=== PATIENT | male | born 1965 | race Caucasian/White ===

== ENCOUNTER 2020-06-19 07:15 | Emergency (ER) | payer OTHER ==
[2020-06-19 07:32] VITALS: BP 141/91; PULSE 74; TEMP 98.6; BMI 27.1
--- OUTSIDE RECORDS SUMMARY | 2020-06-19 07:37 | XMS ---
:1965 Author Organization [facility] Care Team Providers Name Role Phone Rosendo Deng Unavailable Unavailable Marko Bryan MD Unavailable Unavailable Noyer, Edson Unavailable Unavailable Noyer, Edson Unavailable Unavailable Noyer, Edson Unavailable Unavailable Noyer, Edson Unavailable Unavailable Noyer, Edson Unavailable Unavailable Noyer, Edson Unavailable Unavailable Noyer, Edson Unavailable Unavailable Noyer, Edson Unavailable Unavailable Noyer, Edson Unavailable Unavailable Noyer, Edson Unavailable Unavailable Marco Graves MD Unavailable Unavailable Lucian Scanlon MD Unavailable Unavailable Yelitza Bolton MD Unavailable Unavailable Rosy Santoyo MD Unavailable Unavailable Rosy Santoyo MD Unavailable Unavailable Rosy Santoyo MD Unavailable Unavailable Rosy Santoyo MD Unavailable Unavailable Rosy Santoyo MD Unavailable Unavailable Rosy Santoyo MD Unavailable Unavailable Rosy Santoyo MD Unavailable Unavailable Rosy Santoyo MD Unavailable Unavailable Rosy Santoyo MD Unavailable Unavailable Rosy Santoyo MD Unavailable Unavailable Rosy Santoyo MD Unavailable Unavailable Rosy Santoyo MD Unavailable Unavailable Tara Dorado NP Unavailable Unavailable Marco Hardin MD Unavailable Unavailable Jean Claude Michael MD Unavailable Unavailable Foristell, Rosy MD Unavailable Unavailable Foristell, Rosy MD Unavailable Unavailable Foristell, Rosy MD Unavailable Unavailable Foristell, Rosy MD Unavailable Unavailable Foristell, Rosy MD Unavailable Unavailable Foristell, Rosy MD Unavailable Unavailable Foristell, Rosy MD Unavailable Unavailable Foristell, Rosy MD Unavailable Unavailable Foristell, Rosy MD Unavailable Unavailable Foristell, Rosy MD Unavailable Unavailable Foristell, Rosy MD Unavailable Unavailable Foristell, Rosy MD Unavailable Unavailable Nabil Rivera MD Unavailable Unavailable Re-disclosure Warning The records that you are about to access may contain information from federally- assisted alcohol or drug abuse programs. If such information is present, then the following federally mandated warning applies: This information has been disclosed to you from records protected by federal confidentiality rules (42 CFR part 2). The federal rules prohibit you from making any further disclosure of this information unless further disclosure is expressly permitted by the written consent of the person to whom it pertains or as otherwise permitted by 42 CFR part 2. A general authorization for the release of medical or other information is NOT sufficient for this purpose. The Federal rules restrict any use of the information to criminally investigate or prosecute any alcohol or drug abuse patient.The records that you are about to access may contain highly sensitive health information, the redisclosure of which is protected by Article 27-F of the [facility] Public Health law. If you continue you may haveaccess to information: Regarding HIV / AIDS; Provided by facilities licensed or operated by the [facility] Office of Mental Health; or Provided by the [facility] Office for People With Developmental Disabilities. If such information is present, then the following [facility] mandated warning applies: This information has been disclosed to you from confidential records which are protected by state law. State law prohibits you from making any further disclosure of this information without the specific written consent of the person to whom it pertains, or as otherwise permitted by law. Any unauthorized further disclosure in violation of state law may result in a fine or senior care sentence or both. A general authorization for the release of medical or other information is NOT sufficient authorization for further disclosure. Advance Directives Directive Description Manager Speech Director Digital Marketing Status Observation Data S ource(s) Description Advance No completed [facility] Advance No [facility] Allergies and Adverse Reactions Type Description Substance Reaction Status Data Source(s ) Drug allergy No Known Allergies No Known Allergies UNKNOWN [facility] Drug allergy Drug allergy Drug allergy [facility] ( Digestive Disease & Nutrition [facility] ) Encounters Encounter Providers Location Date Indications Data Source(s ) Outpatient Attender: Digestive 05/30/2020 MEDALINA Bui Disease & 04:30:00 (Digestive Nutrition Center PM EDT Disease & Nutrition [facility]) P Attender: 05/08/2020 DIARRHEA,UNSPECIF Anup Bui 05:00:00 [facility] EDT DIARRHEA,UNSPECIFIED Outpatient Attender: Edson 04/30/2020 01:52:00 [facility] Outpatient Attender: Digestive 04/22/2020 MEDALINA (Digest jose Edson Bui Disease & 02:00:00 PM EDT Diseas e & Nutrition Center [facility] ) Outpatient Attender: 03/19/2020 W/ MRCP [facility] Edson Bui 01:57:00 PM EDT Hospit al W/ [facility] Outpatient Attender: Digestive 03/06/2020 MEDENT Edson Bui Disease & 01:50:00 PM (Digestive Nutrition EDT Disease & Center Nutrition [facility] ) Outpatient Attender: Digestive 11/02/2019 MEDALINA Bui Disease & 01:30:00 PM (Digestive Nutrition EST Disease & Center Nutrition [facility] ) Outpatient Attender: Digestive 10/16/2019 MEDALINA Bui Disease & 12:00:00 PM (Digestive Nutrition EST Disease & Center Nutrition [facility] ) Outpatient Attender: 10/13/2019 CHRONIC BILIARY [place] [facility] Marco Hardin 05:35:00 PM PANCREATITIS Hospital EST CHRONIC BILIARY PANCREATITIS P Attender: Marco 10/13/2019 01:30:00 CT PERIPAN CREATIC FLUID Anup Hardin MD PM EST ASPIRATION Hospital CT PERIPANCREATIC FLUID ASPIRATION Outpatient Attender: Tara 10/03/2019 CHRONIC PANCREATIT IS Anup Dorado NP 01:39:00 PM EST UNSPEC PANCREATIT IS Hospital TYPE CHRONIC PANCREATITIS UNSPEC PANCREATITIS TYPE Outpatient Attender: Tara 07/31/2019 GALLSTONES White Rachael Dorado NP 08:58:00 AM EST PANCREATITIS K85. 10 Hospital GALLSTONES PANCREATITIS K85.10 Outpatient Attender: Digestive 07/20/2019 KATHLEEN Bui Disease & 09:00:00 AM (Digestive Nutrition EDT Disease & Center Nutrition [facility] ) Outpatient Attender: 07/10/2019 K85.10 GALLSTONE [facility] Nikia kimmie Johnshryn 01:25:00 PM PANCREATITIS Hospital [facility] EDT K85.10 [place]ALL[place] PANCREATITIS Inpatient Attender: Rosendo 06/17/2019 GALLSTONE White QuinteroAttender: 05:53:00 PM PANCREATITIS/CHOL ANGITIS [facility] EDT - [facility] MDAttender: Yelitza 07/01/2019 Hoang MDAttender: 11:35:00 AM Marco Graves EDT MDAttender: Nabil Rivera MDAdmitter: Marco Graves MDConsultant: Jean Claude Michael MDConsultant: Lucian Scanlon MD GALL[place]ONE PANCREATITIS/CHOLANGITIS Patient discharged. Outpatient Attender: Digestive 06/06/2019 MEDENT (Digest jose Rosy Disease & 04:30:00 PM EDT Disease & Yarelis LIN Nutrition [facility] ) Outpatient Attender: 05/22/2019 DIARRHEA;UNSPE [place] [facility] 08:00:00 [facility] - 05/22/2019 PSORIATIC 06:22:00 AM EDT ARTHRITIS MUTILANS DIARRHEA;UNSPECIFIED PSORIATIC ARTHRITIS MUTILANS Patient discharged. Outpatient Attender: Digestive 05/16/2019 MEDENT (Digest jose Rosy Foristell Disease & 01:10:00 PM EDT Dise gavin & Nutrition Nutrition [facility] ) Emergency Attender: Marko 05/05/2019 ABD PAIN [place] [facility] Randi LIN 02:03:00 PM EDT AUTO Hospital - 05/05/2019 08:11:00 PM EDT ABD PAIN AUTO Patient discharged. Functional Status Medications Medication Brand Start Product Dose Route Administrative Pharmacy [facility] Indications Reaction Description Data Name Date Form Instructions Instructions Source(s) fidaxomicin Difici 05/30/ ORAL active ME DENT 200 MG Oral d 2019 (Digesti ve Tablet 12:00: Disease & [Dificid] 00 AM Nutrition EDT [facility] r) Vancomycin Vancom 05/01/ ORAL active MED ENT 125 MG Oral ycin 2019 (Digesti ve Capsule HCL 12:00: Disease & 00 AM Nutrition EDT [facility] r) Cholestyram Choles 04/22/ active ME DENT ine Resin tyrami 2019 (Digesti ve 66.7 MG/ML ne 12:00: Disease & Oral 00 AM Nutrition Suspension EDT [facility]) rifaximin Xifaxa 11/29/ complet MED ENT 550 MG Oral n 2019 ed (Digesti ve Tablet 12:00: Disease & [XIFAXAN] 00 AM Nutrition EST [facility]) Amylases Creon 10/16/ ORAL active MEDENT [id number] UNT 2019 (Digestiv e / 12:00: Disease & Endopeptida 00 AM Nutriti on ses [id number] EST Center [facility] Lipase r) [id number] UNT Delayed Release Oral Capsule [Creon] Omeprazole Omepra 07/20/ ORAL active MED ENT 20 MG zole 2018 (Digestive Delayed 12:00: Disease & Release 00 AM Nutrition Oral EDT Center [facility]) No Active 07/20/ complet MEDEN T Medications 2018 ed (Digesti ve 12:00: Disease & 00 AM Nutrition EDT [facility]) Acetaminoph Oxycod 06/30/ TABLET 1 ORAL complet White en 325 MG / one/Ac 2018 {Caps [place] Oxycodone etamin 01:00: ule} Hospit al Hydrochlori ophen 00 PM de 5 MG EDT Oral Tablet [Percocet] Oxycodone/A cetaminophe n Vancomycin Vancom 05/22/ ORAL complet ME DENT 125 MG Oral ycin 2018 ed (Digesti ve Capsule HCL 12:00: Disease & 00 AM Nutrition EDT [facility]) Ciprofloxac Ciprof 05/05/ TABLET 500 ORAL complet [place] in 500 MG loxaci 2019 mg ed [place] Oral Tablet n 08:02: Hospit al 00 PM EDT Metronidazo Metron 05/05/ TABLET 500 ORAL complet [facility] 500 MG idazol 2019 mg ed [place] Oral Tablet e 08:02: Hospit al 00 PM EDT Metronidazo Metron 05/05/ TABLET 500 ORAL complet [facility] 500 MG idazol 2019 mg ed [place] Oral Tablet e 08:02: Hospit al 00 PM EDT Ciprofloxac Ciprof 05/05/ TABLET 500 ORAL complet White in 500 MG loxaci 2019 mg ed [place] Oral Tablet n 08:02: Hospit al 00 PM EDT Ibuprofen Ibupro active MEDENT 800 MG Oral fen (Digesti ve Tablet Disease & Nutrition [facility]) Ciprofloxac Ciprof TABLET 500 ORAL complet [place] in 500 MG loxaci mg ed [place] Oral Tablet n Hospital Denies complet [facility] Acetaminoph Tyleno active MEDE NT en 325 MG l (Digestive Oral Tablet Disease & [Tylenol] Nutrition [facility]) Ibuprofen Advil active MEDENT 200 MG Oral (Digesti ve Capsule Disease & [Advil] Nutrition [facility]) Methylpredn Methyl TABLET 4 mg ORAL complet [place] isolone 4 predni ed [place] MG Oral [facility] Tablet 0.8 ML Adalim KIT SUBCUT complet Er[place] adalimumab umab ANEOUS [facility] 50 MG/ML Hospital Prefilled Syringe [Humira] Adalimumab Denies Denies complet [facility] Methylpredn Methyl TABLET 4 mg ORAL complet [place] isolone 4 predni ed [place] MG Oral [facility] Tablet Methylpredn Methyl active MEDE NT isolone 4 predni (Digesti ve MG Oral solone Disease & Tablet Nutrition [facility]) Oxycodone Oxycod active MEDENT Hydrochlori one (Digesti ve de 5 MG HCL Disease & Oral Tablet Nutritio n [facility]) Taltz Taltz active MEDENT (Digestive Disease & Nutrition [facility]) Denies complet [facility] Humira Pen Humira SUBCUT active MED ENT Pen ANEOUS (Digestive Disease & Nutrition [facility]) Metronidazo Metron TABLET 500 ORAL complet [place] le 500 MG idazol mg ed [place] Oral Tablet e Hospital Insurance Providers Payer name Policy type Policy ID Covered Covered alliance party's Policy P kamron / Coverage alliance party ID relationship to [place] [facility] or[facility] type [place] PMA Management [id number] SP [id number] Iam BLUE CROSS IND [id number] PT YL [id number] BLUE CROSS PPO [id number] PT YL [id number] BLUE CROSS IND [id number] PT YL [id number] BLUE CROSS PPO [id number] PT YL [id number] Problems, Conditions, and Diagnoses Code Display Name Description Problem Type Effective Dates Data Source(s) K57.30 Diverticulosis of K57.30 Diagnosis 04/30/2020 [place] large intestine 01:52:00 PM EDT Hosp ital without perforation or abscess without bleeding N28.1 Cyst of kidney, N28.1 Diagnosis 04/30/2020 [place] [facility] acquired 01:52:00 PM EDT Hospital K86.3 Pseudocyst of K86.3 Diagnosis 04/30/2020 [place] pancreas 01:52:00 PM EDT Hospital D18.03 Hemangioma of D18.03 Diagnosis 03/19/2020 [place] intra-abdominal 01:57:00 PM EDT Hosp ital structures K76.0 Fatty (change of) K76.0 Diagnosis 03/19/2020 [place] liver, not elsewhere 01:57:00 PM EDT Hospital classified K86.89 Other specified K86.89 Diagnosis 03/19/2020 [place] [facility] diseases of pancreas 01:57:00 PM EDT Hospital K86.1 Other chronic K86.1 Diagnosis 10/13/2019 [place] pancreatitis 05:35:00 PM EST Hospita l K86.2 Cyst of pancreas K86.2 Diagnosis 10/13/2019 [place] 05:35:00 PM EST Hospital K31.89 Other diseases of K31.89 Diagnosis 07/31/2019 [place] stomach and duodenum 08:58:00 AM EST Hospital K85.10 Biliary acute K85.10 Diagnosis 07/31/2019 [place] pancreatitis without 08:58:00 AM EST Hospital necrosis or infection Z87.891 Personal history of Z87.891 Diagnosis 06/17/2019 [place] nicotine dependence 08:22:00 PM EDT Hospital T38.0X5A Adverse effect of T38.0X5A Diagnosis 06/17/2019 [place] glucocorticoids and 08:22:00 PM EDT Hospital synthetic analogues, initial encounter D72.829 Elevated white blood D72.829 Diagnosis 06/17/2019 Mariia Arevalo cell count, 08:22:00 PM EDT Hospital unspecified R09.02 Hypoxemia R09.02 Diagnosis 06/17/2019 [place] 08:22:00 PM EDT Hospital K21.9 Gastro-esophageal K21.9 Diagnosis 06/17/2019 [place] reflux disease 08:22:00 PM EDT Hospi dena without esophagitis E87.6 Hypokalemia E87.6 Diagnosis 06/17/2019 [place] 08:22:00 PM EDT Hospital K80.66 Calculus of K80.66 Diagnosis 06/17/2019 [place] gallbladder and bile 08:22:00 PM EDT Hospital duct with acute and chronic cholecystitis without obstruction Z68.34 Body mass index (BMI) Z68.34 Diagnosis 06/17/2019 Wh[place] [facility] [place] 34.0-34.9, adult 08:22:00 PM EDT Hos pital E66.9 Obesity, unspecified E66.9 Diagnosis 06/17/2019 Whit [place] 08:22:00 PM EDT Hospital R74.0 Nonspecific elevation R74.0 Diagnosis 06/17/2019 [facility] [place] of levels of 08:22:00 PM EDT Hospita l transaminase and lactic acid dehydrogenase [LDH] Z79.52 senior care (current) Z79.52 Diagnosis 06/17/2019 [place] use of systemic 08:22:00 PM EDT Hosp ital steroids L40.50 Arthropathic L40.50 Diagnosis 06/17/2019 [place] psoriasis, 08:22:00 PM EDT Hospital unspecified K62.1 Rectal polyp K62.1 Diagnosis 05/22/2019 [place] 06:21:00 AM EDT Hospital Z12.11 Encounter for Z12.11 Diagnosis 05/22/2019 [place] screening for 06:21:00 AM EDT Hospit al malignant neoplasm of colon K52.9 Noninfective K52.9 Diagnosis 05/05/2019 [place] gastroenteritis and 03:54:00 PM EDT Hospital colitis, unspecified Surgeries/Procedures Procedure Description Date Indications Data Source(s) Oxygen therapy (procedure) 06/29/2019 [place] 12:00:00 AM Hospital EDT Magnetic resonance imaging of 06/28/2019 [place] abdomen (procedure) 12:00:00 AM Hospital EDT Ultrasonography of abdomen 06/27/2019 [place] (procedure) 12:00:00 AM Hospital EDT Continuous pulse oximetry 06/22/2019 Wh [facility]e [place] (procedure) 12:00:00 AM Hospital EDT Oxygen therapy (procedure) 06/22/2019 [place] 12:00:00 AM Hospital EDT Computed tomography of abdomen 06/22/2019 [place] and pelvis with intravenous and 12:00:00 AM Hospital oral contrast EDT UPPER GI NDSC W/NDSC ULTRASOUND 06/21/2019 [facility] (Digestive EXAM 12:00:00 AM Disease & EDT Nutrition [facility]) Diagnostic radiography of 06/19/2019 Wh ite [place] abdomen (procedure) 12:00:00 AM Hospital EDT ERCP 06/18/2019 [facility] (Digesti ve W/SPHINCTEROTOMY/PAPILLOTOMY 12:00:00 AM Disease & EDT Nutrition [facility]) ERCP W/RMVCALCULI 06/18/2019 [facility] (Di gestive BILIARY&/PANCREATIC DUCTS 12:00:00 AM Di sease & EDT Nutrition [facility]) Endoscopic retrograde 06/18/2019 [place] cholangiopancreatography 12:00:00 AM Hos pital (procedure) EDT Magnetic resonance 06/18/2019 [place] cholangiopancreatography 12:00:00 AM Hos pital (procedure) EDT Plain chest X-ray (procedure) 06/18/2019 [place] 12:00:00 AM Hospital EDT Ultrasonography of abdomen 06/17/2019 [place] (procedure) 12:00:00 AM Hospital EDT Electrocardiographic procedure 06/17/2019 [place] (procedure) 12:00:00 AM Hospital EDT COLONOSCOPY W/BIOPSY 05/22/2019 [facility] (Digestive SINGLE/MULTIPLE 12:00:00 AM Disease & EDT Nutrition [facility]) Computed tomography of abdomen 05/05/2019 [place] and pelvis with intravenous and 12:00:00 AM Hospital oral contrast EDT LOCM 200-299MG/ML IODINE,1ML 05/05/2019 [place] 12:00:00 AM Hospital EDT LOW OSMOLAR 300-399 mg/mi IOP 05/05/2019 [place] 12:00:[address] abd & pelv w/contrast 05/05/2019 Whi [facility] [place] 12:00:00 AM Hospital EDT Assay of lipase 05/05/2019 [place] 12:00:00 AM Hospital EDT Comprehen metabolic panel 05/05/2019 Wh [facility] [place] 12:00:00 AM Hospital EDT Complete cbc w/auto diff wbc 05/05/2019 [place] 12:00:00 AM Hospital EDT Urinalysis auto w/scope 05/05/2019 Whit [facility] [place] 12:00:00 AM Hospital EDT Emergency dept visit 05/05/2019 Anup Rachael chamorrolauren 12:00:00 AM Hospital EDT Results ID Date Data Source [id number] 04/30/2020 09:28:00 AM EDT [facility] ([facility] & Nutrition [facility]) Name Value Range Interpretation Description Data Sup porting Code Source(s) Document(s ) Laboratory Laboratory MED[facility] test finding test result (Digestive (navigational Disease & concept) [facility] ) Laboratory Laboratory MEDENT test finding test result (Digestive (navigational Disease & concept) [facility] ) ID Date Data Source [id number] 04/22/2020 06:47:00 PM EDT [facility] ([facility] & Nutrition [facility]) Name Value Range Interpretation Description Data Sup porting Code Source(s) Document(s ) Clostridium Laboratory [facility] difficile test result (Digestive toxin A+B Disease & [Presence] in Nutrition Stool by Center [facility] ) Test not performed TEST NOT PERFORMED DUE TO: A NON-LIQUID STOOL SPECIMEN WAS RECEIVED FOR TESTING. The CDC and [facility] have recommended oanh t only diarrheal stools be tested for C. difficile infect ion. A diarrheal stool or unformed stool is defined as on e that is liquid or conforms to the shape of the specimen co llection container. ID Date Data Source [id number] 03/06/2020 02:06:00 PM EDT [facility] ([facility] & Nutrition [facility]) Name Value Range Interpretation Description Data Sup porting Code Source(s) Document(s ) Amylase 129 U/L 30-121 Above high normal MED[facility] [Enzymatic (Digestive activity/volume Disease & ] in Serum or Nutrition Plasma [facility]) Lipoprotein 107 U/L 12-53 Above high normal MED[facility] lipase (Digestive [Enzymatic Disease & activity/volume Nutrition ] in Serum or [facility]) ID Date Data Source [id number] 03/06/2020 02:06:00 PM EDT [facility] ([facility] Disease & Nutrition [facility]) Name Value Range Interpretation Description Data Sup porting Code Source(s) Document(s ) Laboratory 12.2 SEC 10.1-13. Normal (applies MEDENT test finding 4 to non-numeric (Digestive (navigational results) Disease & concept) Nutrition [facility]) Laboratory 1.0 Normal (applies MEDENT test finding to non-numeric (Digestive (navigational results) Disease & concept) [facility]) THERAPEUTIC RANGE FOR STANDARD ORAL ANTICOAGULANT THERAPY: 2.0-3.0 THERAPEUTIC RANGE FOR HIGH DOSE ORAL ANTICOAGULANT THERAPY (MECHANICAL HEART VALVE REPLACEMENT): 2.5-3.5 ID Date Data Source [id number] 03/06/2020 02:06:00 PM EDT [facility] ([facility] Disease & Nutrition [facility]) Name Value Range Interpretation Description Data Sup porting Code Source(s) Document(s ) aPTT in Blood 32.9 SEC 24.8-40. Normal (applies MEDENT by Coagulation 0 to non-numeric (Digestive assay results) Disease & Nutrition [facility]) THERAPEUTIC RANGES: UNFRACTIONATED HEPARIN THERAPY: 60-90 SE CONDS ARGATROBAN THERAPY: 49-99 SECONDS ID Date Data Source [id number] 03/06/2020 02:06:00 PM EDT [facility] ([facility] & [facility]) Name Value Range Interpretation Description Data Sup porting Code Source(s) Document(s ) Laboratory 304 ug/dL 126-382 Normal (applies MEDENT test finding to non-numeric (Digestive (navigational results) Disease & concept) [facility] ) Laboratory 367 ug/dL 250-450 Normal (applies MEDENT test finding to non-numeric (Digestive (navigational results) Disease & concept) [facility] ) Iron 63 ug/dL 65-175 Below low normal [facility] [Mass/volume] (Digestive in Serum or Disease & Plasma [facility] ) Folate Laboratory Normal (applies MED[facility] [Mass/volume] test result to non-numeric (Digestiv e in Serum or results) Disease & Plasma Nutrition [facility] ) Cobalamin 1588 pg/mL 211-911 Above high MED[facility] (Vitamin B12) normal (Digestive [Mass/volume] Disease & in Serum or Nutrition Plasma [facility] ) Laboratory 17 % 20-50 Below low normal MED[facility] test finding (Digestive (navigational Disease & concept) [facility] ) Ferritin 218.0 ng/mL 22.0-32 Normal (applies MED[facility] [Mass/volume] 2.0 to non-numeric (Digestive in Serum or results) Disease & Plasma Nutrition [facility] ) ID Date Data Source [id number] 03/06/2020 02:06:00 PM EDT MED[facility] (Diges tive Disease & Nutrition [facility]) Name Value Range Interpretation Description Data Sup porting Code Source(s) Document(s ) Glucose 88 74-106 Normal (applies [facility] [Mass/volume] in mg/dL to non-numeric (Digesti ve Serum or Plasma results) Disease & Nutrition [facility] ) Sodium 144 136-145 Normal (applies MED[facility] [Moles/volume] in mmol/L to non-numeric (Digest jose Serum or Plasma results) Disease & Nutrition [facility] ) Carbon dioxide, 31 23-29 Above high MED[facility] total mmol/L normal (Digestive [Moles/volume] in Disease & Serum or Plasma Nutrition [facility] ) Chloride 106 98-107 Normal (applies MED[facility] [Moles/volume] in mmol/L to non-numeric (Digest jose Serum or Plasma results) Disease & Nutrition [facility] ) Potassium 4.0 3.5-5.3 Normal (applies MED[facility] [Moles/volume] in mmol/L to non-numeric (Digest jose Serum or Plasma results) Disease & Nutrition [facility] ) Creatinine 0.8 0.9-1.3 Below low normal [facility] [Mass/volume] in mg/dL (Digestive Serum or Plasma Disease & Nutrition [facility] ) Laboratory test 11 6-18 Normal (applies MED[facility] finding to non-numeric (Digestive (navigational results) Disease & concept) Nutrition [facility] ) Laboratory test 13 6-20 Normal (applies MED[facility] finding mg/dL to non-numeric (Digestive (navigational results) Disease & concept) Nutrition [facility] ) Calcium 9.4 8.3-10. Normal (applies [facility] [Mass/volume] in mg/dL 6 to non-numeric (Digesti ve Serum or Plasma results) Disease & Nutrition [facility] ) Protein 7.0 5.7-8.2 Normal (applies [facility] [Mass/volume] in GM/DL to non-numeric (Digesti ve Serum or Plasma results) Disease & Nutrition [facility] ) Laboratory test 16.3 6.0-20. Normal (applies MEDENT finding 0 to non-numeric (Digestive (navigational results) Disease & concept) [facility] ) Bilirubin.total 0.3 0.3-1.2 Normal (applies [facility] [Mass/volume] in mg/dL to non-numeric (Digesti ve Serum or Plasma results) Disease & Nutrition [facility] ) Laboratory test 1.7 1.0-2.1 Normal (applies [facility]ENT finding to non-numeric (Digestive (navigational results) Disease & concept) [facility] ) Albumin 4.4 3.4-4.8 Normal (applies [facility] [Mass/volume] in GM/DL to non-numeric (Digesti ve Serum or Plasma results) Disease & Nutrition [facility] ) Aspartate 21 U/L 10-48 Normal (applies MEDENT aminotransferase to non-numeric (Digesti ve [Enzymatic results) Disease & activity/volume] in Nutrition Serum or Plasma [facility] ) Alkaline 122 U/L 41-147 Normal (applies MEDENT phosphatase to non-numeric (Digestive [Enzymatic results) Disease & activity/volume] in Nutrition Serum or Plasma [facility] ) Alanine 27 U/L 10-40 Normal (applies [facility]ENT aminotransferase to non-numeric (Digesti ve [Enzymatic results) Disease & activity/volume] in Nutrition Serum or Plasma [facility] ) ID Date Data Source [id number] 03/06/2020 02:06:00 PM EDT [facility] (Diges tive Disease & Nutrition [facility]) Name Value Range Interpretation Description Data Sup porting Code Source(s) Document(s ) Laboratory 4.68 4.50-5.9 Normal (applies MEDENT test finding MIL/UL 0 to non-numeric (Digestive (navigational results) Disease & concept) [facility]) Laboratory 14.1 13.6-17. Normal (applies MEDENT test finding GM/DL 0 to non-numeric (Digestive (navigational results) Disease & concept) [facility]) Laboratory 6.1 K/UL 4.0-10.0 Normal (applies MEDENT test finding to non-numeric (Digestive (navigational results) Disease & concept) [facility]) Laboratory 30.1 pg 27.0-34. Normal (applies [facility]ENT test finding 0 to non-numeric (Digestive (navigational results) Disease & concept) Nutrition [facility]) Laboratory 32.6 31.0-36. Normal (applies [facility]ENT test finding GM/DL 0 to non-numeric (Digestive (navigational results) Disease & concept) Nutrition [facility]) Laboratory 43.2 % 42.0-50. Normal (applies [facility]ENT test finding 0 to non-numeric (Digestive (navigational results) Disease & concept) Nutrition [facility]) Laboratory 92.3 FL 80.0-96. Normal (applies [facility]ENT test finding 0 to non-numeric (Digestive (navigational results) Disease & concept) Nutrition [facility]) Laboratory 12.7 % 11.5-14. Normal (applies MEDENT test finding 5 to non-numeric (Digestive (navigational results) Disease & concept) Nutrition [facility]) Laboratory 243 K/UL 150-400 Normal (applies [facility]ENT test finding to non-numeric (Digestive (navigational results) Disease & concept) Nutrition [facility]) Laboratory 11.8 FL 9.6-12.8 Normal (applies [facility]ENT test finding to non-numeric (Digestive (navigational results) Disease & concept) [facility]) ID Date Data Source [id number] 11/28/2019 11:22:00 AM EST [facility] (Diges tive Disease & Nutrition [facility]) Name Value Range Interpretation Description Data Sup porting Code Source(s) Document(s ) Chloride 107 98-107 Normal (applies [facility] [Moles/volume] in mmol/L to non-numeric (Digest jose Serum or Plasma results) Disease & Nutrition [facility] ) Glucose 80 74-106 Normal (applies [facility] [Mass/volume] in mg/dL to non-numeric (Digesti ve Serum or Plasma results) Disease & Nutrition [facility] ) Sodium 144 136-145 Normal (applies [facility] [Moles/volume] in mmol/L to non-numeric (Digest jose Serum or Plasma results) Disease & Nutrition [facility] ) Potassium 4.7 3.5-5.3 Normal (applies [facility] [Moles/volume] in mmol/L to non-numeric (Digest jose Serum or Plasma results) Disease & Nutrition [facility] ) Laboratory test 16 6-20 Normal (applies [facility] finding mg/dL to non-numeric (Digestive (navigational results) Disease & concept) Nutrition [facility] ) Laboratory test 10 6-18 Normal (applies [facility] finding to non-numeric (Digestive (navigational results) Disease & concept) [facility] ) Carbon dioxide, 32 23-29 Above high MEDENT total mmol/L normal (Digestive [Moles/volume] in Disease & Serum or Plasma Nutrition [facility] ) Protein 7.2 5.7-8.2 Normal (applies [facility] [Mass/volume] in GM/DL to non-numeric (Digesti ve Serum or Plasma results) Disease & Nutrition [facility] ) Creatinine 0.8 0.9-1.3 Below low normal [facility] [Mass/volume] in mg/dL (Digestive Serum or Plasma Disease & Nutrition [facility] ) Laboratory test 20.0 6.0-20. Normal (applies [facility] finding 0 to non-numeric (Digestive (navigational results) Disease & concept) [facility] ) Calcium 9.8 8.3-10. Normal (applies [facility] [Mass/volume] in mg/dL 6 to non-numeric (Digesti ve Serum or Plasma results) Disease & Nutrition [facility] ) Laboratory test 1.7 1.0-2.1 Normal (applies [facility] finding to non-numeric (Digestive (navigational results) Disease & concept) [facility] ) Bilirubin.total 0.4 0.3-1.2 Normal (applies [facility] [Mass/volume] in mg/dL to non-numeric (Digesti ve Serum or Plasma results) Disease & Nutrition [facility] ) Albumin 4.5 3.4-4.8 Normal (applies [facility] [Mass/volume] in GM/DL to non-numeric (Digesti ve Serum or Plasma results) Disease & Nutrition [facility] ) Alkaline 117 U/L 41-147 Normal (applies [facility] phosphatase to non-numeric (Digestive [Enzymatic results) Disease & activity/volume] in Nutrition Serum or Plasma [facility] ) Aspartate 25 U/L 10-48 Normal (applies [facility] aminotransferase to non-numeric (Digesti ve [Enzymatic results) Disease & activity/volume] in Nutrition Serum or Plasma [facility] ) Alanine 28 U/L 10-40 Normal (applies [facility]ENT aminotransferase to non-numeric (Digesti ve [Enzymatic results) Disease & activity/volume] in Nutrition Serum or Plasma [facility] ) ID Date Data Source [id number] 11/28/2019 11:22:00 AM EST [facility] (Diges tive Disease & Nutrition [facility]) Name Value Range Interpretation Description Data Sup porting Code Source(s) Document(s ) Amylase 87 U/L 30-121 Normal (applies to MED[facility] [Enzymatic non-numeric (Digestive activity/volume results) Disease & ] in Serum or Nutrition Plasma [facility]) Lipoprotein 52 U/L 12-53 Normal (applies to MEDENT lipase non-numeric (Digestive [Enzymatic results) Disease & activity/volume Nutrition ] in Serum or [facility]) ID Date Data Source [id number] 10/13/2019 03:55:00 PM EST [facility] ([facility] tive Disease & Nutrition [facility]) Name Value Range Interpretation Description Data Sup porting Code Source(s) Document(s ) Laboratory Laboratory MEDENT test finding test result (Digestive (navigational Disease & concept) Nutrition [facility] ) ID Date Data Source [id number] 07/01/2019 05:10:00 AM [facility] Name Value Range Interpretation Description Data Sup porting Code Source(s) Document(s ) Phosphate 2.5 mg/dL [facility] [Mass/volume] Hospital in Serum or Plasma ID Date Data Source [id number] 07/01/2019 05:10:00 AM [facility] Name Value Range Interpretation Description Data Sup porting Code Source(s) Document(s ) Magnesium 2.1 mg/dL [facility] [Mass/volume] Hospital in Serum or Plasma ID Date Data Source [id number] 07/01/2019 05:10:00 AM [facility] Name Value Range Interpretation Description Data Sup porting Code Source(s) Document(s ) Aspartate 34 U/L White aminotransferase [place] [Enzymatic Hospital activity/volume] in Serum or Plasma ID Date Data Source [id number] 07/01/2019 05:10:00 AM [facility] Name Value Range Interpretation Description Data Sup porting Code Source(s) Document(s ) Alanine 68 U/L [place] aminotransferase [place] [Enzymatic Hospital activity/volume] in Serum or Plasma ID Date Data Source [id number] [facility] Interpretation Description Data Sup porting Code Source(s) Document(s ) Alkaline 97 U/L [facility] phosphatase Hospital [Enzymatic activity/volume ] in Serum or Plasma ID Date Data Source [id number] 07/01/2019 05:10:00 AM [facility] Name Value Range Interpretation Description Data Sup porting Code Source(s) Document(s ) Bilirubin.t 0.4 mg/dL [facility] [Mass/volum e] in Serum or Plasma ID Date Data Source [id number] 07/01/2019 05:10:00 AM [facility] Name Value Range Interpretation Code Description Data Annalise rce(s) Supporting Document(s ) Albumin/Glob 1.2 [facility] [Mass Hospital Ratio] in Serum or Plasma ID Date Data Source [id number] 07/01/2019 05:10:00 AM [facility] Name Value Range Interpretation Description Data Sup porting Code Source(s) Document(s ) Albumin 3.3 g/dL [facility] [Mass/volume Hospital ] in Serum or Plasma ID Date Data Source [id number] 07/01/2019 05:10:00 AM [facility] Name Value Range Interpretation Description Data Sup porting Code Source(s) Document(s ) Protein 6.0 g/dL [facility] [Mass/volume Hospital ] in Serum or Plasma ID Date Data Source [id number] 07/01/2019 05:10:00 AM EDT [facility] Name Value Range Interpretation Description Data Sup porting Code Source(s) Document(s ) Calcium 8.6 mg/dL [facility] [Mass/volume Hospital ] in Serum or Plasma ID Date Data Source [id number] 07/01/2019 05:10:00 AM EDT [facility] Name Value Range Interpretation Code Description Data Annalise rce(s) Supporting Document(s ) Urea 21.4 [facility] nitrogen/Cre Hospital atinine [Mass Ratio] in Serum or Plasma ID Date Data Source [id number] 07/01/2019 05:10:00 AM EDT [facility] Name Value Range Interpretation Description Data Sup porting Code Source(s) Document(s ) Creatinine 0.7 mg/dL [facility] [Mass/volume] Hospital in Serum or Plasma ID Date Data Source [id number] 07/01/2019 05:10:00 AM EDT [facility] Name Value Range Interpretation Description Data Sup porting Code Source(s) Document(s ) Urea 15 mg/dL [facility] nitrogen Hospital [Mass/volume ] in Serum or Plasma ID Date Data Source [id number] 07/01/2019 05:10:00 AM EDT [facility] Name Value Range Interpretation Code Description Data Annalise rce(s) Supporting Document(s ) Anion gap in 13 [facility] Serum or Hospital Plasma ID Date Data Source [id number] 07/01/2019 05:10:00 AM EDT [facility] Name Value Range Interpretation Description Data Sup porting Code Source(s) Document(s ) Carbon 30 mmol/L [facility] total [Moles/volu me] in Serum or Plasma ID Date Data Source [id number] 07/01/2019 05:10:00 AM EDT [facility] Name Value Range Interpretation Description Data Sup porting Code Source(s) Document(s ) Chloride 101 [facility] [Moles/volum mmol/L Hospital e] in Serum or Plasma ID Date Data Source [id number] 07/01/2019 05:10:00 AM EDT [facility] Name Value Range Interpretation Description Data Sup porting Code Source(s) Document(s ) Potassium 4.2 [facility] [Moles/volume mmol/L Hospital ] in Serum or Plasma ID Date Data Source [id number] 07/01/2019 05:10:00 AM EDT [facility] Name Value Range Interpretation Description Data Sup porting Code Source(s) Document(s ) Sodium 140 mmol/L [facility] [Moles/volu Hospital me] in Serum or Plasma ID Date Data Source [id number] 07/01/2019 05:10:00 AM EDT [facility] Name Value Range Interpretation Description Data Sup porting Code Source(s) Document(s ) Glucose 96 mg/dL [facility] [Mass/volume Hospital ] in Serum or Plasma ID Date Data Source [id number] 07/01/2019 05:10:00 AM EDT [facility] Name Value Range Interpretation Description Data Sup porting Code Source(s) Document(s ) Manual MANUAL [facility] differential Hospital performed [Presence] in Blood ID Date Data Source [id number] 07/01/2019 05:10:00 AM EDT [facility] Name Value Range Interpretation Code Description Data Annalise rce(s) Supporting Document(s ) Cells 100 [facility] Counted Hospital Total [#] in Blood ID Date Data Source [id number] 07/01/2019 05:10:00 AM EDT [facility] Name Value Range Interpretation Code Description Data Supporting Source(s) Document(s ) PLATELET NORMAL [facility] COMMENT Hospital ID Date Data Source [id number] 07/01/2019 05:10:00 AM EDT [facility] Value Range Interpretation Code Description Data Annalise rce(s) Supporting Document(s ) MEGHAN CELLS OCC [facility] ID Date Data Source [id number] 07/01/2019 05:10:00 AM EDT [facility] Value Range Interpretation Description Data Sup porting Code Source(s) Document(s ) Eosinophils 0.12 [facility] [#/volume] in 10*3/uL Hospital Blood by Manual count ID Date Data Source [id number] 07/01/2019 05:10:00 AM EDT [facility] Value Range Interpretation Description Data Sup porting Code Source(s) Document(s ) Monocytes 0.37 [facility] [#/volume] in 10*3/uL Hospital Blood by Manual count ID Date Data Source [id number] 07/01/2019 05:10:00 AM EDT [facility] Value Range Interpretation Description Data Sup porting Code Source(s) Document(s ) Lymphocytes 1.36 [facility] [#/volume] in 10*3/uL Hospital Blood by Manual count ID Date Data Source [id number] 07/01/2019 05:10:00 AM EDT [facility] Value Range Interpretation Description Data Sup porting Code Source(s) Document(s ) Neutrophils 10.54 [facility] [#/volume] in 10*3/uL Hospital Blood by Manual count ID Date Data Source [id number] 07/01/2019 05:10:00 AM EDT [facility] Value Range Interpretation Description Data Sup porting Code Source(s) Document(s ) Eosinophils/100 1 % [facility] leukocytes in Hospital Blood by Manual count ID Date Data Source [id number] 07/01/2019 05:10:00 AM EDT [facility] Value Range Interpretation Description Data Sup porting Code Source(s) Document(s ) Monocytes/100 3 % [facility] leukocytes in Hospital Blood by Manual count ID Date Data Source [id number] 07/01/2019 05:10:00 AM EDT [facility] Value Range Interpretation Description Data Sup porting Code Source(s) Document(s ) Lymphocytes/100 11 % [facility] leukocytes in Hospital Blood by Manual count ID Date Data Source [id number] 07/01/2019 05:10:00 AM EDT [facility] Value Range Interpretation Description Data Sup porting Code Source(s) Document(s ) Band form 1 % [facility] neutrophils/100 Hospital leukocytes in Blood ID Date Data Source [id number] 07/01/2019 05:10:00 AM EDT [facility] Value Range Interpretation Description Data Sup porting Code Source(s) Document(s ) Neutrophils/100 84 % [facility] leukocytes in Hospital Blood by Manual count ID Date Data Source [id number] 07/01/2019 [facility] Interpretation Description Data Sup porting Code Source(s) Document(s ) Platelet mean 10.7 fL [facility] volume Hospital [Entitic volume] in Blood by Automated count ID Date Data Source [id number] 07/01/2019 05:10:00 AM EDT [facility] Value Range Interpretation Description Data Sup porting Code Source(s) Document(s ) Platelets 448 [facility] [#/volume] in 10*3/uL Hospital Blood by Automated count ID Date Data Source [id number] 07/01/2019 05:10:00 AM EDT [facility] Value Range Interpretation Description Data Sup porting Code Source(s) Document(s ) Erythrocyte 12.5 % [facility] Hospital width [Ratio] by Automated count ID Date Data Source [id number] 07/01/2019 05:10:00 AM [facility] Value Range Interpretation Description Data Sup porting Code Source(s) Document(s ) Erythrocyte mean 33.0 [facility] corpuscular g/dL Hospital hemoglobin concentration [Mass/volume] by Automated count ID Date Data Source [id number] 07/01/2019 05:10:00 AM [facility] Value Range Interpretation Description Data Sup porting Code Source(s) Document(s ) Erythrocyte 29.8 pg [facility] corpuscular hemoglobin [Entitic mass] by Automated count ID Date Data Source [id number] 07/01/2019 05:10:00 AM [facility] Value Range Interpretation Description Data Sup porting Code Source(s) Document(s ) Erythrocyte 90.3 fL [facility] corpuscular volume [Entitic volume] by Automated count ID Date Data Source [id number] 07/01/2019 05:10:00 AM [facility] Value Range Interpretation Description Data Sup porting Code Source(s) Document(s ) Hematocrit 37.3 % [facility] [Volume Hospital Fraction] of Blood by Automated count ID Date Data Source [id number] 07/01/2019 05:10:00 AM [facility] Value Range Interpretation Description Data Sup porting Code Source(s) Document(s ) Hemoglobin 12.3 g/dL [facility] [Mass/volume] Hospital in Blood ID Date Data Source [id number] 07/01/2019 05:10:00 AM [facility] Value Range Interpretation Description Data Sup porting Code Source(s) Document(s ) Erythrocytes 4.13 [facility] [#/volume] in 10*6/uL Hospital Blood by Automated count ID Date Data Source [id number] [facility] Interpretation Description Data Sup porting Code Source(s) Document(s ) Leukocytes 12.4 [facility] [#/volume] in 10*3/uL Hospital Blood by Automated count ID Date Data Source [id number] 06/30/2019 [facility] Interpretation Code Description Data Annalise rce(s) Supporting Document(s ) RBC COMMENT NORMAL [facility] ID Date Data Source [id number] 06/30/2019 [facility] Interpretation Description Data Sup porting Code Source(s) Document(s ) Basophils 0.13 [facility] [#/volume] in 10*3/uL [facility] Blood by Manual count ID Date Data Source [id number] 06/30/2019 05:25:00 AM [facility] Name Value Range Interpretation Description Data Sup porting Code Source(s) Document(s ) Basophils/100 1 % [facility] leukocytes in Hospital Blood by Manual count ID Date Data Source [id number] 06/29/2019 06:01:00 PM [facility] Offset Press Operator:MARILYNN ROSAS Name Value Range Interpretation Description Data Sup porting Code Source(s) Document(s ) Glucose 98 mg/dL [facility] [Mass/volume] Hospital in Capillary blood by Glucometer ID Date Data Source [id number] 06/29/2019 05:52:00 AM [facility] THERAPEUTIC RANGES:UNFRACTIONATED HEPARI N THERAPY: 60-90 SECONDSARGATROBAN THERAPY: 49-99 SECONDS Name Value Range Interpretation Description Data Sup porting Code Source(s) Document(s ) aPTT in 29.0 s [facility] Platelet poor [facility] plasma by Coagulation assay ID Date Data Source [id number] 06/29/2019 05:52:00 AM EDT [facility] THERAPEUTIC RANGE FOR STANDARD ORALANTIC OAGULANT THERAPY: 2.0-3.0THERAPEUTIC RANGE FOR HIGH DOSE ORALANTICOAGULANT THERAPY (MECHANICAL HEARTVALVE REPLACEMENT): 2.5-3.5 Name Value Range Interpretation Description Data Sup porting Code Source(s) Document(s ) INR in Platelet 1.3 [facility] poor plasma by Hospital Coagulation assay ID Date Data Source [id number] 06/29/2019 05:52:00 AM EDT [facility] Name Value Range Interpretation Description Data Sup porting Code Source(s) Document(s ) PT panel - 14.7 s [facility] Platelet poor [facility] plasma by Coagulation assay ID Date Data Source [id number] 06/28/2019 03:48:00 PM EDT [facility] ([facility]) Name Value Range Interpretation Description Data Sup porting Code Source(s) Document(s ) Laboratory <pending> [facility] test finding (Digestive (navigational Disease & concept) Nutrition [facility]) ID Date Data Source [id number] 06/28/2019 05:37:00 AM EDT [facility] Name Value Range Interpretation Code Description Data Supporting Source(s) Document(s ) POLYCHROMASIA 1+ [facility] ID Date Data Source [id number] 06/28/2019 05:37:00 AM EDT [facility] Name Value Range Interpretation Description Data Sup porting Code Source(s) Document(s ) Myelocytes/100 1 % [facility] leukocytes in Hospital Blood by Manual count ID Date Data Source [id number] 06/28/2019 05:37:00 AM EDT [facility] Name Value Range Interpretation Description Data Sup porting Code Source(s) Document(s ) Metamyelocytes/ 1 % [facility] 100 leukocytes Hospital in Blood by Manual count ID Date Data Source [id number] 06/27/2019 06:20:00 AM EDT [facility] Name Value Range Interpretation Code Description Data Annalise rce(s) Supporting Document(s ) OVALOCYTES OCC [facility] ID Date Data Source [id number] 06/26/2019 05:38:00 AM EDT [facility] Value Range Interpretation Code Description Data Annalise rce(s) Supporting Document(s ) Amylase 30 U/L [facility] [Enzymatic Hospital activity/vol ume] in Serum or Plasma ID Date Data Source [id number] 06/26/2019 05:38:00 AM EDT [facility] Value Range Interpretation Code Description Data Annalise rce(s) Supporting Document(s ) Lipase 29 U/L [facility] [Enzymatic Hospital activity/vo lume] in Serum or Plasma ID Date Data Source [id number] 06/24/2019 06:18:00 AM EDT [facility] Value Range Interpretation Code Description Data Supporting Source(s) Document(s ) NUCLEATED RBCS 0.2 % [facility] (AUTO Hospital DIFF%)DIS ID Date Data Source [id number] 06/24/2019 06:18:00 AM EDT [facility] Value Range Interpretation Description Data Sup porting Code Source(s) Document(s ) Differential AUTOMATED [facility] cell count [facility] method - Blood ID Date Data Source [id number] 06/24/2019 06:18:00 AM EDT [facility] Value Range Interpretation Code Description Data Annalise rce(s) Supporting Document(s ) TARGET CELLS OCC [facility] ID Date Data Source [id number] 06/24/2019 06:18:00 AM EDT [facility] Name Value Range Interpretation Description Data Sup porting Code Source(s) Document(s ) POIKILOCYTOSIS OCC [facility] ID Date Data Source [id number] 06/24/2019 06:18:00 AM EDT [facility] Value Range Interpretation Description Data Sup porting Code Source(s) Document(s ) Plasma 2 % [facility] cells/100 Hospital leukocytes in Blood ID Date Data Source [id number] 06/24/2019 06:18:00 AM EDT [facility] Value Range Interpretation Description Data Sup porting Code Source(s) Document(s ) Immature 0.72 [facility] granulocytes 10*3/uL Hospital [#/volume] in Blood by Automated count ID Date Data Source [id number] 06/24/2019 06:18:00 AM EDT [facility] Name Value Range Interpretation Description Data Sup porting Code Source(s) Document(s ) Basophils 0.05 [facility] [#/volume] in 10*3/uL Hospital Blood by Automated count ID Date Data Source [id number] 06/24/2019 06:18:00 AM EDT [facility] Value Range Interpretation Description Data Sup porting Code Source(s) Document(s ) Eosinophils 0.12 [facility] [#/volume] in 10*3/uL Hospital Blood by Automated count ID Date Data Source [id number] 06/24/2019 06:18:00 AM EDT [facility] Value Range Interpretation Description Data Sup porting Code Source(s) Document(s ) Monocytes 1.96 [facility] [#/volume] in 10*3/uL Hospital Blood by Automated count ID Date Data Source [id number] 06/24/2019 06:18:00 AM EDT [facility] Name Value Range Interpretation Description Data Sup porting Code Source(s) Document(s ) Lymphocytes 1.12 [facility] [#/volume] in 10*3/uL Hospital Blood by Automated count ID Date Data Source [id number] 06/24/2019 06:18:00 AM EDT [facility] Value Range Interpretation Description Data Sup porting Code Source(s) Document(s ) Neutrophils 12.23 [facility] [#/volume] in 10*3/uL Hospital Blood by Automated count ID Date Data Source [id number] 06/24/2019 06:18:00 AM EDT [facility] Value Range Interpretation Description Data Sup porting Code Source(s) Document(s ) Nucleated 0.2 % [facility] erythrocytes/10 Hospital 0 leukocytes [Ratio] in Blood by Automated count ID Date Data Source [id number] 06/24/2019 06:18:00 AM EDT [facility] Value Range Interpretation Description Data Sup porting Code Source(s) Document(s ) Immature 4.4 % [facility] granulocytes/10 Hospital 0 leukocytes in Blood by Automated count ID Date Data Source [id number] 06/24/2019 06:18:00 AM EDT [facility] Value Range Interpretation Description Data Sup porting Code Source(s) Document(s ) Basophils/100 0.3 % [facility] leukocytes in Hospital Blood by Automated count ID Date Data Source [id number] 06/24/2019 06:18:00 AM EDT [facility] Value Range Interpretation Description Data Sup porting Code Source(s) Document(s ) Eosinophils/100 0.7 % [facility] leukocytes in Hospital Blood by Automated count ID Date Data Source [id number] 06/24/2019 06:18:00 AM EDT [facility] Name Value Range Interpretation Description Data Sup porting Code Source(s) Document(s ) Monocytes/100 12.1 % [facility] leukocytes in Hospital Blood by Automated count ID Date Data Source [id number] 06/24/2019 06:18:00 AM [facility] Name Value Range Interpretation Description Data Sup porting Code Source(s) Document(s ) Lymphocytes/100 6.9 % [facility] leukocytes in Hospital Blood by Automated count ID Date Data Source [id number] 06/24/2019 06:18:00 AM [facility] Name Value Range Interpretation Description Data Sup porting Code Source(s) Document(s ) Neutrophils/10 75.6 % [facility] 0 leukocytes Hospital in Blood by Automated count ID Date Data Source [id number] 06/23/2019 05:14:00 AM [facility] Name Value Range Interpretation Description Data Sup porting Code Source(s) Document(s ) Prealbumin 8.1 mg/dL [facility] [Mass/volume] Hospital in Serum or Plasma ID Date Data Source [id number] 06/22/2019 06:42:00 AM [facility] Name Value Range Interpretation Code Description Data Annalise rce(s) Supporting Document(s ) HYPOCHROMIA OCC [facility] ID Date Data Source [id number] 06/19/2019 06:39:00 AM [facility] UNITS ARE IN ml/min/1.73m2.IF PATIENT IS -[place], MULTIPLY REPORTED RESULT BY 1.21. Name Value Range Interpretation Description Data Sup porting Code Source(s) Document(s ) Glomerular > 60 [facility] filtration mL/min Hospital rate/1.73 sq M.predicted [Volume Rate/Area] in Serum or Plasma by Creatinine-bas ed formula (MDRD) ID Date Data Source [id number] 06/17/2019 08:25:00 PM EDT [facility] Name Value Range Interpretation Description Data Sup porting Code Source(s) Document(s ) Calcium OCCASIONAL [facility] oxalate Hospital crystals [#/area] in Urine sediment by Microscopy high power field ID Date Data Source [id number] 06/17/2019 08:25:00 PM EDT [facility] Name Value Range Interpretation Description Data Sup porting Code Source(s) Document(s ) Erythrocytes NEGATIVE White [#/area] in /[HPF] [place] Urine sediment Hospital by Microscopy high power field ID Date Data Source [id number] [facility] Interpretation Description Data Sup porting Code Source(s) Document(s ) Leukocytes 0-3 [facility] [#/area] in /[HPF] Hospital Urine sediment by Microscopy high power field ID Date Data Source [id number] [facility] Interpretation Code Description Data Supporting Source(s) Document(s ) Leukocyte TRACE [facility] esterase Hospital [Presence] in Urine by Test strip ID Date Data Source [id number] 06/17/2019 08:25:00 PM [facility] Name Value Range Interpretation Description Data Sup porting Code Source(s) Document(s ) URINE NEGATIVE [facility] NITRITES Hospital ID Date Data Source [id number] 06/17/2019 08:25:00 PM [facility] Name Value Range Interpretation Description Data Sup porting Code Source(s) Document(s ) Erythrocytes NEGATIVE [facility] [#/volume] in Hospital Urine by Test strip ID Date Data Source [id number] 06/17/2019 08:25:00 PM [facility] In addition to bilirubin, a positive res ult may be caused by metabolites of certain medications and by atypically colored ur ine samples. If clinically indicated, correlate positive results with serum li beverly function tests. Name Value Range Interpretation Code Description Data Annalise rce(s) Supporting Document(s ) Bilirubin. POSITIVE [facility] total Hospital [Presence] in Urine by Test strip ID Date Data Source [id number] 06/17/2019 08:25:00 PM EDT [facility] Name Value Range Interpretation Description Data Sup porting Code Source(s) Document(s ) Urobilinogen 1.0 [facility] [Units/volume] mg/dL Hospital in Urine by Test strip ID Date Data Source [id number] 06/17/2019 08:25:00 PM EDT [facility] Name Value Range Interpretation Description Data Sup porting Code Source(s) Document(s ) Ketones NEGATIVE [facility] [Mass/volume Hospital ] in Urine by Test strip ID Date Data Source [id number] 06/17/2019 08:25:00 PM EDT [facility] Name Value Range Interpretation Description Data Sup porting Code Source(s) Document(s ) Glucose NEGATIVE [facility] [Mass/volume Hospital ] in Urine by Test strip ID Date Data Source [id number] 06/17/2019 08:25:00 PM EDT [facility] Name Value Range Interpretation Code Description Data Annalise rce(s) Supporting Document(s ) Protein 1+ [facility] [Presence] Hospital in Urine by Test strip ID Date Data Source [id number] 06/17/2019 08:25:00 PM EDT [facility] Name Value Range Interpretation Code Description Data Annalise rce(s) Supporting Document(s ) pH of Urine 5.0 [facility] by Test Hospital strip ID Date Data Source [id number] 06/17[facility]2019 [facility] Range Interpretation Code Description Data Supporting Source(s) Document(s ) Specific 1.026 [facility] gravity of Hospital Urine by Test strip ID Date Data Source [id number] 06/17/2019 08:25:00 PM EDT [facility] Value Range Interpretation Description Data Sup porting Code Source(s) Document(s ) Clarity in Urine CLOUDY [facility] by Refractometry Hospital automated ID Date Data Source [id number] 06/17/2019 08:25:00 PM EDT [facility] Value Range Interpretation Code Description Data Supporting Source(s) Document(s ) Color of DK YELLOW [facility] Urine Hospital ID Date Data Source [id number] 06/17[facility] Description Data Sup porting Code Source(s) Document(s ) Hepatitis C NON-REACT [facility] virus Ab [facility] Hospital [Presence] in Serum ID Date Data Source [id number] 06/17[facility]2019 [facility] Interpretation Description Data Sup porting Code Source(s) Document(s ) Hepatitis B NON-REACT [facility] virus core [facility] IgM Ab [Presence] in Serum ID Date Data Source [id number] 06/17/2019 [facility] Interpretation Description Data Sup porting Code Source(s) Document(s ) Hepatitis A NON-REACT [facility] virus IgM Ab [facility] Hospital [Presence] in Serum ID Date Data Source [id number] 06/17/2019 [facility] Interpretation Description Data Sup porting Code Source(s) Document(s ) Hepatitis B NON-REACT [facility] virus surface [facility] Ag [Presence] in Serum ID Date Data Source [id number] 06/17/2019 06:13:00 PM EDT [facility] Name Value Range Interpretation Description Data Sup porting Code Source(s) Document(s ) Triglyceride 96 mg/dL [facility] [Mass/volume] in Hospital Serum or Plasma ID Date Data Source [id number] 06/17/2019 06:13:00 PM EDT [facility] TEST PERFORMED BY [employer] ULTRA SENSITIVE [facility] CHEMILUMINESCENCE METHOD. Name Value Range Interpretation Description Data Sup porting Code Source(s) Document(s ) Troponin < 0.01 [facility] I.cardiac ng/mL Hospital [Mass/volume ] in Serum or Plasma ID Date Data Source [id number] 06/17/2019 06:13:00 PM EDT [facility] Name Value Range Interpretation Description Data Sup porting Code Source(s) Document(s ) Bilirubin.d 2.1 mg/dL [facility] [Mass/volum e] in Serum or Plasma ID Date Data Source [id number] 05/22/2019 10:54:00 AM EDT [facility]) Name Value Range Interpretation Description Data Sup porting Code Source(s) Document(s ) Laboratory <pending> [facility] test finding (Digestive (navigational Disease & concept) Nutrition [facility]) ID Date Data Source [id number] 05/05/2019 03:48:00 PM EDT [facility] Name Value Range Interpretation Code Description Data Annalise rce(s) Supporting Document(s ) Lipase 28 U/L [facility] [Enzymatic Hospital activity/vo lume] in Serum or Plasma ID Date Data Source [id number] 05/05/2019 03:48:00 PM EDT [facility] Name Value Range Interpretation Description Data Sup porting Code Source(s) Document(s ) Aspartate 24 U/L [facility] aminotransferase [place] [Enzymatic Hospital activity/volume] in Serum or Plasma ID Date Data Source [id number] 05/05/2019 03:48:00 PM EDT [facility] Name Value Range Interpretation Description Data Sup porting Code Source(s) Document(s ) Alanine 32 U/L [facility] aminotransferase [place] [Enzymatic Hospital activity/volume] in Serum or Plasma ID Date Data Source [id number] 05/05/2019 03:48:00 PM EDT [facility] Name Value Range Interpretation Description Data Sup porting Code Source(s) Document(s ) Alkaline 104 U/L [facility] phosphatase Hospital [Enzymatic activity/volume ] in Serum or Plasma ID Date Data Source [id number] 05/05/2019 03:48:00 PM EDT [facility] Value Range Interpretation Description Data Sup porting Code Source(s) Document(s ) Bilirubin.t 0.3 mg/dL [facility] [Mass/volum e] in Serum or Plasma ID Date Data Source [id number] 05/05/2019 03:48:00 PM EDT [facility] Name Value Range Interpretation Code Description Data Annalise rce(s) Supporting Document(s ) Albumin/Glob 1.4 [facility] ulin [Mass Hospital Ratio] in Serum or Plasma ID Date Data Source [id number] 05/05/2019 03:48:00 PM EDT [facility] Name Value Range Interpretation Description Data Sup porting Code Source(s) Document(s ) Albumin 4.2 g/dL [facility] [Mass/volume Hospital ] in Serum or Plasma ID Date Data Source [id number] 05/05/2019 03:48:00 PM EDT [facility] Name Value Range Interpretation Description Data Sup porting Code Source(s) Document(s ) Protein 7.1 g/dL [facility] [Mass/volume Hospital ] in Serum or Plasma ID Date Data Source [id number] 05/05/2019 03:48:00 PM EDT [facility] Name Value Range Interpretation Description Data Sup porting Code Source(s) Document(s ) Calcium 9.1 mg/dL [facility] [Mass/volume Hospital ] in Serum or Plasma ID Date Data Source [id number] 05/05/2019 03:48:00 PM EDT [facility] Name Value Range Interpretation Code Description Data Annalise rce(s) Supporting Document(s ) Urea 12.5 [facility] nitrogen/Cre Hospital atinine [Mass Ratio] in Serum or Plasma ID Date Data Source [id number] 05/05/2019 03:48:00 PM EDT [facility] Name Value Range Interpretation Description Data Sup porting Code Source(s) Document(s ) Creatinine 0.8 mg/dL [facility] [Mass/volume] Hospital in Serum or Plasma ID Date Data Source [id number] 05/05/2019 03:48:00 PM EDT [facility] Name Value Range Interpretation Description Data Sup porting Code Source(s) Document(s ) Urea 10 mg/dL [facility] nitrogen Hospital [Mass/volume ] in Serum or Plasma ID Date Data Source [id number] 05/05/2019 03:48:00 PM EDT [facility] Name Value Range Interpretation Code Description Data Annalise rce(s) Supporting Document(s ) Anion gap in 13 [facility] Serum or Hospital Plasma ID Date Data Source [id number] 05/05/2019 03:48:00 PM EDT [facility] Name Value Range Interpretation Description Data Sup porting Code Source(s) Document(s ) Carbon 29 mmol/L [facility] dioxide, Hospital total [Moles/volu me] in Serum or Plasma ID Date Data Source [id number] 05/05/2019 03:48:00 PM EDT [facility] Name Value Range Interpretation Description Data Sup porting Code Source(s) Document(s ) Chloride 103 [facility] [Moles/volum mmol/L Hospital e] in Serum or Plasma ID Date Data Source [id number] 05/05/2019 03:48:00 PM EDT [facility] Name Value Range Interpretation Description Data Sup porting Code Source(s) Document(s ) Potassium 4.0 [facility] [Moles/volume mmol/L Hospital ] in Serum or Plasma ID Date Data Source [id number] 05/05/2019 03:48:00 PM EDT [facility] Value Range Interpretation Description Data Sup porting Code Source(s) Document(s ) Sodium 141 mmol/L [facility] [Moles/volu Hospital me] in Serum or Plasma ID Date Data Source [id number] 05/05/2019 03:48:00 PM EDT [facility] Name Value Range Interpretation Description Data Sup porting Code Source(s) Document(s ) Glucose 86 mg/dL [facility] [Mass/volume Hospital ] in Serum or Plasma ID Date Data Source [id number] 05/05/2019 03:48:00 PM EDT [facility] Value Range Interpretation Code Description Data Supporting Source(s) Document(s ) NUCLEATED RBCS 0.0 % [facility] (AUTO Hospital DIFF%)DIS ID Date Data Source [id number] 05/05/2019 03:48:00 PM EDT [facility] Value Range Interpretation Description Data Sup porting Code Source(s) Document(s ) Differential AUTOMATED [facility] cell count Hospital method - Blood ID Date Data Source [id number] 05/05/2019 03:48:00 PM EDT [facility] Value Range Interpretation Description Data Sup porting Code Source(s) Document(s ) Immature 0.03 [facility] granulocytes 10*3/uL Hospital [#/volume] in Blood by Automated count ID Date Data Source [id number] 05/05/2019 03:48:00 PM EDT [facility] Name Value Range Interpretation Description Data Sup porting Code Source(s) Document(s ) Basophils 0.02 [facility] [#/volume] in 10*3/uL Hospital Blood by Automated count ID Date Data Source [id number] 05/05/2019 03:48:00 PM EDT [facility] Value Range Interpretation Description Data Sup porting Code Source(s) Document(s ) Eosinophils 0.04 [facility] [#/volume] in 10*3/uL Hospital Blood by Automated count ID Date Data Source [id number] 05/05/2019 03:48:00 PM EDT [facility] Name Value Range Interpretation Description Data Sup porting Code Source(s) Document(s ) Monocytes 1.00 [facility] [#/volume] in 10*3/uL Hospital Blood by Automated count ID Date Data Source [id number] 05/05/2019 03:48:00 PM EDT [facility] Value Range Interpretation Description Data Sup porting Code Source(s) Document(s ) Lymphocytes 1.23 [facility] [#/volume] in 10*3/uL Hospital Blood by Automated count ID Date Data Source [id number] 05/05/2019 03:48:00 PM EDT [facility] Name Value Range Interpretation Description Data Sup porting Code Source(s) Document(s ) Neutrophils 6.92 [facility] [#/volume] in 10*3/uL Hospital Blood by Automated count ID Date Data Source [id number] 05/05/2019 03:48:00 PM EDT [facility] Name Value Range Interpretation Description Data Sup porting Code Source(s) Document(s ) Nucleated 0.0 % [facility] erythrocytes/10 Hospital 0 leukocytes [Ratio] in Blood by Automated count ID Date Data Source [id number] 05/05/2019 03:48:00 PM EDT [facility] Name Value Range Interpretation Description Data Sup porting Code Source(s) Document(s ) Immature 0.3 % [facility] granulocytes/10 Hospital 0 leukocytes in Blood by Automated count ID Date Data Source [id number] 05/05/2019 03:48:00 PM EDT [facility] Name Value Range Interpretation Description Data Sup porting Code Source(s) Document(s ) Basophils/100 0.2 % [facility] leukocytes in Hospital Blood by Automated count ID Date Data Source [id number] 05/05/2019 03:48:00 PM EDT [facility] Name Value Range Interpretation Description Data Sup porting Code Source(s) Document(s ) Eosinophils/100 0.4 % [facility] leukocytes in Hospital Blood by Automated count ID Date Data Source [id number] 05/05/2019 03:48:00 PM EDT [facility] Name Value Range Interpretation Description Data Sup porting Code Source(s) Document(s ) Monocytes/100 10.8 % [facility] leukocytes in Hospital Blood by Automated count ID Date Data Source [id number] 05/05/2019 03:48:00 PM EDT [facility] Name Value Range Interpretation Description Data Sup porting Code Source(s) Document(s ) Lymphocytes/10 13.3 % [facility] 0 leukocytes Hospital in Blood by Automated count ID Date Data Source [id number] 05/05/2019 03:48:00 PM EDT [facility] Name Value Range Interpretation Description Data Sup porting Code Source(s) Document(s ) Neutrophils/10 75.0 % [facility] 0 leukocytes Hospital in Blood by Automated count ID Date Data Source [id number] 05/05/2019 03:48:00 PM [facility] Value Range Interpretation Description Data Sup porting Code Source(s) Document(s ) Platelet mean 10.8 fL [facility] volume Hospital [Entitic volume] in Blood by Automated count ID Date Data Source [id number] 05/05[facility]2019 [facility] Description Data Sup porting Code Source(s) Document(s ) Platelets 182 [facility] [#/volume] in 10*3/uL Hospital Blood by Automated count ID Date Data Source [id number] 05/05/2019 03:48:00 PM [facility] Value Range Interpretation Description Data Sup porting Code Source(s) Document(s ) Erythrocyte 12.2 % [facility] distribution Hospital width [Ratio] by Automated count ID Date Data Source [id number] 05/05/2019 03:48:00 PM [facility] Value Range Interpretation Description Data Sup porting Code Source(s) Document(s ) Erythrocyte mean 34.3 [facility] corpuscular g/dL Hospital hemoglobin concentration [Mass/volume] by Automated count ID Date Data Source [id number] 05/05/2019 03:48:00 PM [facility] Value Range Interpretation Description Data Sup porting Code Source(s) Document(s ) [facility] [Entitic mass] by Automated count ID Date Data Source [id number] 05/05/2019 03:48:00 PM [facility] Value Range Interpretation Description Data Sup porting Code Source(s) Document(s ) Erythrocyte 90.2 fL [facility] mean Hospital corpuscular volume [Entitic volume] by Automated count ID Date Data Source [id number] 05/05/2019 03:48:00 PM EDT [facility] Value Range Interpretation Description Data Sup porting Code Source(s) Document(s ) Hematocrit 44.3 % [facility] [Volume Hospital Fraction] of Blood by Automated count ID Date Data Source [id number] 05/05/2019 03:48:00 PM EDT [facility] Value Range Interpretation Description Data Sup porting Code Source(s) Document(s ) Hemoglobin 15.2 g/dL [facility] [Mass/volume] Hospital in Blood ID Date Data Source [id number] 05/05/2019 03:48:00 PM EDT [facility] Value Range Interpretation Description Data Sup porting Code Source(s) Document(s ) Erythrocytes 4.91 [facility] [#/volume] in 10*6/uL Hospital Blood by Automated count ID Date Data Source [id number] 05/05/2019 03:48:00 PM EDT [facility] Value Range Interpretation Description Data Sup porting Code Source(s) Document(s ) Leukocytes 9.2 [facility] [#/volume] in 10*3/uL Hospital Blood by Automated count ID Date Data Source [id number] 05/05/2019 03:48:00 PM EDT [facility] Value Range Interpretation Code Description Data Annalise rce(s) Supporting Document(s ) Lipase 28 U/L [facility] [Enzymatic Hospital activity/vo lume] in Serum or Plasma ID Date Data Source [id number] 05/05/2019 03:48:00 PM EDT [facility] Value Range Interpretation Description Data Sup porting Code Source(s) Document(s ) Aspartate 24 U/L [facility] aminotransferase [place] [Enzymatic Hospital activity/volume] in Serum or Plasma ID Date Data Source [id number] 05/05/2019 03:48:00 PM EDT [facility] Name Value Range Interpretation Description Data Sup porting Code Source(s) Document(s ) Alanine 32 U/L [facility] aminotransferase [place] [Enzymatic Hospital activity/volume] in Serum or Plasma ID Date Data Source [id number] 05/05/2019 03:48:00 PM EDT [facility] Name Value Range Interpretation Description Data Sup porting Code Source(s) Document(s ) Alkaline 104 U/L [facility] phosphatase [facility] [Enzymatic activity/volume ] in Serum or Plasma ID Date Data Source [id number] 05/05/2019 03:48:00 PM EDT [facility] Name Value Range Interpretation Description Data Sup porting Code Source(s) Document(s ) Bilirubin.t 0.3 mg/dL [facility] [Mass/volum e] in Serum or Plasma ID Date Data Source [id number] [facility] Interpretation Code Description Data Annalise rce(s) Supporting Document(s ) [facility] in Serum or Plasma ID Date Data Source [id number] 05/05/2019 03:48:00 PM EDT [facility] Name Value Range Interpretation Description Data Sup porting Code Source(s) Document(s ) Albumin 4.2 g/dL [facility] [Mass/volume Hospital ] in Serum or Plasma ID Date Data Source [id number] 05/05/2019 03:48:00 PM EDT [facility] Name Value Range Interpretation Description Data Sup porting Code Source(s) Document(s ) Protein 7.1 g/dL [facility] [Mass/volume Hospital ] in Serum or Plasma ID Date Data Source [id number] 05/05/2019 03:48:00 PM EDT [facility] Name Value Range Interpretation Description Data Sup porting Code Source(s) Document(s ) Calcium 9.1 mg/dL [facility] [Mass/volume Hospital ] in Serum or Plasma ID Date Data Source [id number] 05/05/2019 03:48:00 PM EDT [facility] Name Value Range Interpretation Code Description Data Annalise rce(s) Supporting Document(s ) Urea 12.5 [facility] nitrogen/Cre [facility] atinine [Mass Ratio] in Serum or Plasma ID Date Data Source [id number] 05/05/2019 03:48:00 PM EDT [facility] Value Range Interpretation Description Data Sup porting Code Source(s) Document(s ) Creatinine 0.8 mg/dL [facility] [Mass/volume] Hospital in Serum or Plasma ID Date Data Source [id number] 05/05/2019 03:48:00 PM EDT [facility] Name Value Range Interpretation Description Data Sup porting Code Source(s) Document(s ) Urea 10 mg/dL [facility] nitrogen [facility] [Mass/volume ] in Serum or Plasma ID Date Data Source [id number] 05/05/2019 03:48:00 PM EDT [facility] Name Value Range Interpretation Code Description Data Annalise rce(s) Supporting Document(s ) Anion gap in 13 [facility] Serum or [facility] Plasma ID Date Data Source [id number] 05/05/2019 03:48:00 PM EDT [facility] Name Value Range Interpretation Description Data Sup porting Code Source(s) Document(s ) Carbon 29 mmol/L [facility] dioxide, Hospital total [Moles/volu me] in Serum or Plasma ID Date Data Source [id number] 05/05/2019 03:48:00 PM EDT [facility] Name Value Range Interpretation Description Data Sup porting Code Source(s) Document(s ) Chloride 103 [facility] [Moles/volum mmol/L Hospital e] in Serum or Plasma ID Date Data Source [id number] 05/05/2019 03:48:00 PM EDT [facility] Value Range Interpretation Description Data Sup porting Code Source(s) Document(s ) Potassium 4.0 [facility] [Moles/volume mmol/L Hospital ] in Serum or Plasma ID Date Data Source [id number] 05/05/2019 03:48:00 PM EDT [facility] Value Range Interpretation Description Data Sup porting Code Source(s) Document(s ) Sodium 141 mmol/L [facility] [Moles/volu Hospital me] in Serum or Plasma ID Date Data Source [id number] 05/05/2019 03:48:00 PM EDT [facility] Value Range Interpretation Description Data Sup porting Code Source(s) Document(s ) Glucose 86 mg/dL [facility] [Mass/volume Hospital ] in Serum or Plasma ID Date Data Source [id number] 05/05/2019 03:48:00 PM EDT [facility] Value Range Interpretation Code Description Data Supporting Source(s) Document(s ) NUCLEATED RBCS 0.0 % [facility] (AUTO Hospital DIFF%)DIS ID Date Data Source [id number] 05/05/2019 03:48:00 PM EDT [facility] Value Range Interpretation Description Data Sup porting Code Source(s) Document(s ) Differential AUTOMATED [facility] cell count Hospital method - Blood ID Date Data Source [id number] 05/05/2019 03:48:00 PM EDT [facility] Value Range Interpretation Description Data Sup porting Code Source(s) Document(s ) Immature 0.03 [facility] granulocytes 10*3/uL Hospital [#/volume] in Blood by Automated count ID Date Data Source [id number] 05/05/2019 03:48:00 PM EDT [facility] Value Range Interpretation Description Data Sup porting Code Source(s) Document(s ) Basophils 0.02 [facility] [#/volume] in 10*3/uL Hospital Blood by Automated count ID Date Data Source [id number] 05/05/2019 03:48:00 PM EDT [facility] Value Range Interpretation Description Data Sup porting Code Source(s) Document(s ) Eosinophils 0.04 [facility] [#/volume] in 10*3/uL [facility] Blood by Automated count ID Date Data Source [id number] 05/05/2019 03:48:00 PM EDT [facility] Value Range Interpretation Description Data Sup porting Code Source(s) Document(s ) Monocytes 1.00 [facility] [#/volume] in 10*3/uL [facility] Blood by Automated count ID Date Data Source [id number] 05/05/2019 03:48:00 PM EDT [facility] Value Range Interpretation Description Data Sup porting Code Source(s) Document(s ) Lymphocytes 1.23 [facility] [#/volume] in 10*3/uL Hospital Blood by Automated count ID Date Data Source [id number] 05/05/2019 03:48:00 PM EDT [facility] Value Range Interpretation Description Data Sup porting Code Source(s) Document(s ) Neutrophils 6.92 [facility] [#/volume] in 10*3/uL Hospital Blood by Automated count ID Date Data Source [id number] 05/05/2019 03:48:00 PM EDT [facility] Value Range Interpretation Description Data Sup porting Code Source(s) Document(s ) Nucleated 0.0 % [facility] erythrocytes/10 Hospital 0 leukocytes [Ratio] in Blood by Automated count ID Date Data Source [id number] 05/05/2019 03:48:00 PM EDT [facility] Value Range Interpretation Description Data Sup porting Code Source(s) Document(s ) Immature 0.3 % [facility] granulocytes/10 Hospital 0 leukocytes in Blood by Automated count ID Date Data Source [id number] 05/05/2019 03:48:00 PM EDT [facility] Value Range Interpretation Description Data Sup porting Code Source(s) Document(s ) Basophils/100 0.2 % [facility] leukocytes in Hospital Blood by Automated count ID Date Data Source [id number] 05/05/2019 03:48:00 PM EDT [facility] Value Range Interpretation Description Data Sup porting Code Source(s) Document(s ) Eosinophils/100 0.4 % [facility] leukocytes in Hospital Blood by Automated count ID Date Data Source [id number] 05/05/2019 03:48:00 PM EDT [facility] Value Range Interpretation Description Data Sup porting Code Source(s) Document(s ) Monocytes/100 10.8 % [facility] leukocytes in Hospital Blood by Automated count ID Date Data Source [id number] 05/05/2019 03:48:00 PM EDT [facility] Value Range Interpretation Description Data Sup porting Code Source(s) Document(s ) Lymphocytes/10 13.3 % [facility] 0 leukocytes Hospital in Blood by Automated count ID Date Data Source [id number] 05/05/2019 03:48:00 PM EDT [facility] Name Value Range Interpretation Description Data Sup porting Code Source(s) Document(s ) Neutrophils/10 75.0 % [facility] 0 leukocytes Hospital in Blood by Automated count ID Date Data Source [id number] 05/05/2019 03:48:00 PM EDT [facility] Value Range Interpretation Description Data Sup porting Code Source(s) Document(s ) Platelet mean 10.8 fL [facility] volume Hospital [Entitic volume] in Blood by Automated count ID Date Data Source [id number] 05/05/2019 03:48:00 PM EDT [facility] Value Range Interpretation Description Data Sup porting Code Source(s) Document(s ) Platelets 182 [facility] [#/volume] in 10*3/uL Hospital Blood by Automated count ID Date Data Source [id number] 05/05/2019 03:48:00 PM EDT [facility] Value Range Interpretation Description Data Sup porting Code Source(s) Document(s ) Erythrocyte 12.2 % [facility] Hospital width [Ratio] by Automated count ID Date Data Source [id number] 05/05/2019 03:48:00 PM EDT [facility] Value Range Interpretation Description Data Sup porting Code Source(s) Document(s ) Erythrocyte mean 34.3 [facility] corpuscular g/dL Hospital hemoglobin concentration [Mass/volume] by Automated count ID Date Data Source [id number] 05/05[facility]2019 [facility]ation Description Data Sup porting Code Source(s) Document(s ) Erythrocyte 31.0 pg [facility] corpuscular hemoglobin [Entitic mass] by Automated count ID Date Data Source [id number] 05/05/2019 03:48:00 PM [facility] Value Range Interpretation Description Data Sup porting Code Source(s) Document(s ) Erythrocyte 90.2 fL [facility] corpuscular volume [Entitic volume] by Automated count ID Date Data Source [id number] 05/05/2019 03:48:00 PM EDT [facility] Name Value Range Interpretation Description Data Sup porting Code Source(s) Document(s ) Hematocrit 44.3 % [facility] [Volume Hospital Fraction] of Blood by Automated count ID Date Data Source [id number] 05/05/2019 03:48:00 PM EDT [facility] Name Value Range Interpretation Description Data Sup porting Code Source(s) Document(s ) Hemoglobin 15.2 g/dL [facility] [Mass/volume] Hospital in Blood ID Date Data Source [id number] 05/05/2019 03:48:00 PM EDT [facility] Value Range Interpretation Description Data Sup porting Code Source(s) Document(s ) Erythrocytes 4.91 [facility] [#/volume] in 10*6/uL Hospital Blood by Automated count ID Date Data Source [id number] 05/05/2019 03:48:00 PM EDT [facility] Value Range Interpretation Description Data Sup porting Code Source(s) Document(s ) Leukocytes 9.2 [facility] [#/volume] in 10*3/uL Hospital Blood by Automated count ID Date Data Source [id number] 05/05/2019 03:42:00 PM EDT [facility] Value Range Interpretation Description Data Sup porting Code Source(s) Document(s ) Mucus PRESENT [facility] [Presence] in Hospital Urine sediment by Light microscopy ID Date Data Source [id number] 05/05/2019 [facility] Interpretation Description Data Sup porting Code Source(s) Document(s ) Calcium OCCASIONAL [facility] oxalate Hospital crystals [#/area] in Urine sediment by Microscopy high power field ID Date Data Source [id number] [facility] Interpretation Description Data Sup porting Code Source(s) Document(s ) Epithelial OCCASIONAL [facility] cells.[facility] s [#/area] in Urine sediment by Microscopy high power field ID Date Data Source [id number] 05/05/2019 03:42:00 PM EDT [facility] Name Value Range Interpretation Description Data Sup porting Code Source(s) Document(s ) Bacteria OCCASIONAL [facility] [#/area] in Hospital Urine sediment by Microscopy high power field ID Date Data Source [id number] 05/05/2019 [facility] Interpretation Description Data Sup porting Code Source(s) Document(s ) Erythrocytes 5-10 [facility] [#/area] in /[HPF] Hospital Urine sediment by Microscopy high power field ID Date Data Source [id number] 05/05/2019 03:42:00 PM [facility] Name Value Range Interpretation Description Data Sup porting Code Source(s) Document(s ) Leukocytes 0-3 [facility] [#/area] in /[HPF] Hospital Urine sediment by Microscopy high power field ID Date Data Source [id number] 05/05/2019 03:42:00 PM [facility] Name Value Range Interpretation Description Data Sup porting Code Source(s) Document(s ) Leukocyte NEGATIVE [facility] [Presence] in Urine by Test strip ID Date Data Source [id number] 05/05/2019 03:42:00 PM [facility] Name Value Range Interpretation Description Data Sup porting Code Source(s) Document(s ) URINE NEGATIVE [facility] ID Date Data Source [id number] 05/05/2019 03:42:00 PM [facility] Name Value Range Interpretation Description Data Sup porting Code Source(s) Document(s ) Erythrocytes TRACE [facility] [#/volume] in Hospital Urine by Test strip ID Date Data Source [id number] 05/05/2019 03:42:00 PM EDT [facility] Name Value Range Interpretation Code Description Data Annalise rce(s) Supporting Document(s ) Bilirubin. NEGATIVE [facility] total Hospital [Presence] in Urine by Test strip ID Date Data Source [id number] 05/05/2019 03:42:00 PM EDT [facility] Name Value Range Interpretation Description Data Sup porting Code Source(s) Document(s ) Urobilinogen 0.2 [facility] [Units/volume] mg/dL Hospital in Urine by Test strip ID Date Data Source [id number] 05/05/2019 03:42:00 PM EDT [facility] Name Value Range Interpretation Description Data Sup porting Code Source(s) Document(s ) Ketones NEGATIVE [facility] [Mass/volume Hospital ] in Urine by Test strip ID Date Data Source [id number] 05/05/2019 03:42:00 PM EDT [facility] Name Value Range Interpretation Description Data Sup porting Code Source(s) Document(s ) Glucose NEGATIVE [facility] [Mass/volume Hospital ] in Urine by Test strip ID Date Data Source [id number] 05/05/2019 03:42:00 PM EDT [facility] Name Value Range Interpretation Code Description Data Annalise rce(s) Supporting Document(s ) Protein 1+ [facility] [Presence] Hospital in Urine by Test strip ID Date Data Source [id number] 05/05/2019 03:42:00 PM EDT [facility] Name Value Range Interpretation Code Description Data Annalise rce(s) Supporting Document(s ) pH of Urine 6.0 [facility] by Test Hospital strip ID Date Data Source [id number] 05/05/2019 03:42:00 PM EDT [facility] Value Range Interpretation Code Description Data Supporting Source(s) Document(s ) Specific 1.029 [facility] gravity of Hospital Urine by Test strip ID Date Data Source [id number] 05/05/2019 03:42:00 PM EDT [facility] Name Value Range Interpretation Description Data Sup porting Code Source(s) Document(s ) Clarity in Urine CLEAR [facility] by Refractometry Hospital automated ID Date Data Source [id number] 05/05/2019 03:42:00 PM EDT [facility] Value Range Interpretation Code Description Data Supporting Source(s) Document(s ) Color of DK YELLOW [facility] Urine Hospital ID Date Data Source [id number] 05/05/2019 03:42:00 PM EDT [facility] Name Value Range Interpretation Description Data Sup porting Code Source(s) Document(s ) Mucus PRESENT [facility] [Presence] in Hospital Urine sediment by Light microscopy ID Date Data Source [id number] 05/05/2019 03:42:00 PM EDT [facility] Value Range Interpretation Description Data Sup porting Code Source(s) Document(s ) Calcium OCCASIONAL [facility] oxalate Hospital crystals [#/area] in Urine sediment by Microscopy high power field ID Date Data Source [id number] 05/05/2019 03:42:00 PM EDT [facility] Value Range Interpretation Description Data Sup porting Code Source(s) Document(s ) Epithelial OCCASIONAL [facility] cells.[facility] s [#/area] in Urine sediment by Microscopy high power field ID Date Data Source [id number] 05/05/2019 03:42:00 PM EDT [facility] Name Value Range Interpretation Description Data Sup porting Code Source(s) Document(s ) Bacteria OCCASIONAL [facility] [#/area] in Hospital Urine sediment by Microscopy high power field ID Date Data Source [id number] 05/05/2019 03:42:00 PM EDT [facility] Name Value Range Interpretation Description Data Sup porting Code Source(s) Document(s ) Erythrocytes 5-10 [facility] [#/area] in /[HPF] Hospital Urine sediment by Microscopy high power field ID Date Data Source [id number] 05/05/2019 03:42:00 PM EDT [facility] Value Range Interpretation Description Data Sup porting Code Source(s) Document(s ) Leukocytes 0-3 [facility] [#/area] in /[HPF] Hospital Urine sediment by Microscopy high power field ID Date Data Source [id number] 05/05/2019 03:42:00 PM EDT [facility] Value Range Interpretation Description Data Sup porting Code Source(s) Document(s ) Leukocyte NEGATIVE [facility] esterase Hospital [Presence] in Urine by Test strip ID Date Data Source [id number] 05/05/2019 03:42:00 PM EDT [facility] Value Range Interpretation Description Data Sup porting Code Source(s) Document(s ) URINE NEGATIVE [facility] NITRITES Hospital ID Date Data Source [id number] 05/05/2019 03:42:00 PM EDT [facility] Value Range Interpretation Description Data Sup porting Code Source(s) Document(s ) Erythrocytes TRACE [facility] [#/volume] in Hospital Urine by Test strip ID Date Data Source [id number] 05/05/2019 03:42:00 PM EDT [facility] Name Value Range Interpretation Code Description Data Annalise rce(s) Supporting Document(s ) Bilirubin. NEGATIVE [facility] total Hospital [Presence] in Urine by Test strip ID Date Data Source [id number] 05/05/2019 03:42:00 PM EDT [facility] Name Value Range Interpretation Description Data Sup porting Code Source(s) Document(s ) Urobilinogen 0.2 [facility] [Units/volume] mg/dL Hospital in Urine by Test strip ID Date Data Source [id number] 05/05/2019 03:42:00 PM EDT [facility] Name Value Range Interpretation Description Data Sup porting Code Source(s) Document(s ) Ketones NEGATIVE [facility] [Mass/volume Hospital ] in Urine by Test strip ID Date Data Source [id number] 05/05/2019 03:42:00 PM EDT [facility] Name Value Range Interpretation Description Data Sup porting Code Source(s) Document(s ) Glucose NEGATIVE [facility] [Mass/volume Hospital ] in Urine by Test strip ID Date Data Source [id number] 05/05/2019 03:42:00 PM EDT [facility] Name Value Range Interpretation Code Description Data Annalise rce(s) Supporting Document(s ) Protein 1+ [facility] [Presence] Hospital in Urine by Test strip ID Date Data Source [id number] 05/05/2019 03:42:00 PM EDT [facility] Name Value Range Interpretation Code Description Data Annalise rce(s) Supporting Document(s ) pH of Urine 6.0 [facility] by Test Hospital strip ID Date Data Source [id number] 05/05/2019 03:42:00 PM EDT [facility] Name Value Range Interpretation Code Description Data Supporting Source(s) Document(s ) Specific 1.029 [facility] gravity of Hospital Urine by Test strip ID Date Data Source [id number] 05/05/2019 03:42:00 PM EDT [facility] Name Value Range Interpretation Description Data Sup porting Code Source(s) Document(s ) Clarity in Urine CLEAR [facility] by Refractometry Hospital automated ID Date Data Source [id number] 05/05/2019 03:42:00 PM EDT [facility] Name Value Range Interpretation Code Description Data Supporting Source(s) Document(s ) Color of DK YELLOW [facility] Urine Hospital Procedure Social History Code Duration Value Status Description Data Source(s ) Smoking 04/22/2020 Patient is a completed Patient is a former [facility] (Digestive 12:00:00 AM EDT former smoker smoker Diseas e & Nutrition [facility] ) Smoking 06/17/2019 Ex-smoker completed Ex-smoker (finding) [facility] 11:01:00 PM EDT (finding) Hospital Smoking Unknown if ever completed Unknown if ever [facility] smoked smoked Hospital Smoking Unknown if ever completed Unknown if ever [facility] [place] smoked smoked Hospital Vital Signs ID Date Data Source UNK Name Value Range Interpretation Code Description Data Source(s) Body mass 27.4 kg/m2 27.4 kg/m2 [facility] (Digest jose index (BMI) Disease & [Ratio] Nutrition [facility] ) Body weight 202.00 202.00 [lb_av] [facility] (D igestive [lb_av] Disease & Nutrition [facility] ) Body height 72 [in_i] 72 [in_i] [facility] (Diges tive Disease & Nutrition [facility] ) 6'0" Respiratory rate 13 /min 13 /min [facility] ( Digestive Disease & Nutrition [facility]) Heart rate 67 /min 67 /min [facility] (Digest jose Disease & Nutrition [facility]) Diastolic blood pressure 76 mm[Hg] 76 mm[Hg] [facility] (Digestive Disease & Nutrition [facility]) Systolic blood pressure 118 mm[Hg] 118 mm[Hg] M [facility] (Digestive Disease & Nutrition [facility]) Body temperature 97.2 [degF] 97.2 [degF] [facility] (Digestive Disease & Nutrition [facility]) Body mass index (BMI) 27.5 kg/m2 27.5 kg/m2 [facility] (Digestive Disease [Ratio] & Nutrition [facility]) Body weight 203.00 [lb_av] 203.00 [lb_av] [facility] (Digestive Disease & Nutrition [facility]) Body height 72 [in_i] 72 [in_i] [facility] (Diges tive Disease & Nutrition [facility]) 6'0" Respiratory rate 13 /min 13 /min [facility] ( Digestive Disease & Nutrition [facility]) Heart rate 71 /min 71 /min [facility] (Digest jose Disease & Nutrition [facility]) Diastolic blood pressure 70 mm[Hg] 70 mm[Hg] [facility] (Digestive Disease & Nutrition [facility]) Systolic blood pressure 108 mm[Hg] 108 mm[Hg] [facility] (Digestive Disease & Nutrition [facility]) Body mass index (BMI) 27.9 kg/m2 27.9 kg/m2 [facility] (Digestive Disease [Ratio] & Nutrition [facility]) Body weight 206.00 [lb_av] 206.00 [lb_av] [facility] (Digestive Disease & Nutrition [facility]) Body height 72 [in_i] 72 [in_i] [facility] (Diges tive Disease & Nutrition [facility]) 6'0" Respiratory rate 13 /min 13 /min [facility] ( Digestive Disease & Nutrition [facility]) Heart rate 71 /min 71 /min [facility] (Digest jose Disease & Nutrition [facility]) Diastolic blood pressure 80 mm[Hg] 80 mm[Hg] [facility] (Digestive Disease & Nutrition [facility]) Systolic blood pressure 120 mm[Hg] 120 mm[Hg] [facility] (Digestive Disease & Nutrition [facility]) Body mass index (BMI) 27.5 kg/m2 27.5 kg/m2 [facility] (Digestive Disease [Ratio] & Nutrition [facility]) Body weight 203.00 [lb_av] 203.00 [lb_av] [facility] T (Digestive Disease & Nutrition [facility]) Body height 72 [in_i] 72 [in_i] MED[facility] (Diges tive Disease & Nutrition [facility]) 6'0" Respiratory rate 13 /min 13 /min [facility] ( Digestive Disease & Nutrition [facility]) Heart rate 66 /min 66 /min [facility] (Digest jose Disease & Nutrition [facility]) Diastolic blood pressure 80 mm[Hg] 80 mm[Hg] [facility] (Digestive Disease & Nutrition [facility]) Systolic blood pressure 110 mm[Hg] 110 mm[Hg] [facility] (Digestive Disease & Nutrition [facility]) Body mass index (BMI) 27.1 kg/m2 27.1 kg/m2 [facility] (Digestive Disease [Ratio] & Nutrition [facility]) Body weight 200.00 [lb_av] 200.00 [lb_av] [facility] T (Digestive Disease & Nutrition [facility]) Body height 72 [in_i] 72 [in_i] [facility] (Diges tive Disease & Nutrition [facility]) 6'0" Respiratory rate 13 /min 13 /min [facility] ( Digestive Disease & Nutrition [facility]) Heart rate 62 /min 62 /min [facility] (Digest jose Disease & Nutrition [facility]) Diastolic blood pressure 90 mm[Hg] 90 mm[Hg] [facility] (Digestive Disease & Nutrition [facility]) Systolic blood pressure 120 mm[Hg] 120 mm[Hg] [facility] (Digestive Disease & Nutrition [facility]) Body mass index (BMI) 26.4 kg/m2 26.4 kg/m2 [facility] (Digestive Disease [Ratio] & Nutrition [facility]) Body weight 195.00 [lb_av] 195.00 [lb_av] [facility] (Digestive Disease & Nutrition [facility]) Body height 72 [in_i] 72 [in_i] [facility] (Diges tive Disease & Nutrition [facility]) 6'0" Respiratory rate 13 /min 13 /min [facility] ( Digestive Disease & Nutrition [facility]) Heart rate 80 /min 80 /min [facility] (Digest jose Disease & Nutrition [facility]) Diastolic blood pressure 80 mm[Hg] 80 mm[Hg] [facility] (Digestive Disease & Nutrition [facility]) Systolic blood pressure 114 mm[Hg] 114 mm[Hg] [facility] (Digestive Disease & Nutrition [facility]) Diastolic blood pressure 88 mm[Hg] 88 mm[Hg] [facility] Systolic blood pressure 132 mm[Hg] 132 mm[Hg] [facility] Respiratory rate 18 /min 18 /min [facility] [place] Heart rate 73 /min 73 /min [facility] Body temperature 36.[address] [facility] Body temperature 97.4 [degF] 97.4 [degF] [facility] Body mass index (BMI) 33.0 kg/m2 33.0 kg/m2 [facility] [Ratio] Body weight 250.53 [lb_av] 250.53 [lb_av] [facility] Body mass index (BMI) 28.7 kg/m2 28.7 kg/m2 [facility] (Digestive Disease [Ratio] & Nutrition [facility]) Body weight 212.00 [lb_av] 212.00 [lb_av] [facility] (Digestive Disease & Nutrition [facility]) Body height 72 [in_i] 72 [in_i] [facility] (Diges tive Disease & Nutrition [facility]) 6'0" Respiratory rate 12 /min 12 /min [facility] ( Digestive Disease & Nutrition [facility]) Heart rate 78 /min 78 /min [facility] (Digest jose Disease & Nutrition [facility]) Diastolic blood pressure 64 mm[Hg] 64 mm[Hg] [facility] (Digestive Disease & Nutrition [facility]) Systolic blood pressure 126 mm[Hg] 126 mm[Hg] [facility] Diastolic blood pressure 75 mm[Hg] 75 mm[Hg] [facility] Systolic blood pressure 112 mm[Hg] 112 mm[Hg] [facility] Heart rate 65 /min 65 /min [facility] Body temperature 36.[address] [facility] Body temperature 97.6 [degF] 97.6 [degF] [facility] Respiratory rate 14 /min 14 /min [facility] [place] Body mass index (BMI) 29.8 kg/m2 29.8 kg/m2 [facility] [Ratio] Body weight 220 [lb_av] 220 [lb_av] [facility] Body mass index (BMI) 29.0 kg/m2 29.0 kg/m2 [facility] (Digestive Disease [Ratio] & Nutrition [facility]) Body weight 214.00 [lb_av] 214.00 [lb_av] [facility] (Digestive Disease & Nutrition [facility]) Body height 72 [in_i] 72 [in_i] [facility] (Diges tive Disease & Nutrition [facility]) 6'0" Respiratory rate 13 /min 13 /min [facility] ( Digestive Disease & Nutrition [facility]) Heart rate 78 /min 78 /min [facility] (Digest jose Disease & Nutrition [facility]) Diastolic blood pressure 70 mm[Hg] 70 mm[Hg] [facility] (Digestive Disease & Nutrition [facility]) Systolic blood pressure 118 mm[Hg] 118 mm[Hg] [facility] (Digestive Disease & Nutrition [facility]) Diastolic blood pressure 90 mm[Hg] 90 mm[Hg] [facility] Systolic blood pressure 131 mm[Hg] 131 mm[Hg] [facility] Respiratory rate 18 /min 18 /min [facility] [place] Heart rate 73 /min 73 /min [facility] Body temperature 36.[address] [facility] Body temperature 98.1 [degF] 98.1 [degF] [facility] Body mass index (BMI) 30.0 kg/m2 30.0 kg/m2 [facility] [Ratio] Body weight 220.46 [lb_av] 220.46 [lb_av] [facility]
[2020-06-19] MEDS ORDERED: DIPHTH,PERTUSS(ACELL),TET 0.5 ML DISP.SYRIN IM ONE ×2 (08:01→08:08)
--- NOTE | 2020-06-19 08:28 | PDOC ---
History of Present Illness - General History Source: Patient - History of Present Illness Timing/Duration: reports: just prior to arrival Location: reports: extremities <Sara Chase - Last Filed: 06/19/20 08:02> <Stacie Harding Kalie - Last Filed: 06/19/20 14:00> - General Chief Complaint: Laceration Stated Complaint: R KNEE LAC Time Seen by Provider: 06/19/20 07:24 Past History - Medical History COPD: No Other medical history: C.DIFF POSITIVE FOR PANCREATITIS - Immunization History Immunization Up to Date: No - Psycho-Social/Smoking History Smoking History: Unknown if ever smoked Have you smoked in the past 12 months: No Information on smoking cessation initiated: No - Substance Abuse Hx (Audit-C & DAST Scrn) How often the patient has a drink containing alcohol: Never Score: In Men: 4 or > Positive; In Women: 3 or > Positive: 0 Screen Result (Pos requires Nsg. Audit-10AR): Negative In the last yr the pt used illegal drug/Rx for NonMed reason: No Score: Yes response is considered Positive: 0 Screen Result (Positive result requires Nsg. DAST-10): Negative <Sara Chase - Last Filed: 06/19/20 08:02> <Stacie Harding - Last Filed: 06/19/20 14:00> - Medical History Allergies/Adverse Reactions: Allergies Allergy/AdvReac Type Severity Reaction Status Date / Time No Known Allergies Allergy Verified 10/09/14 10:13 Home Medications: Ambulatory Orders Ixekizumab [Taltz Autoinjector] 80 mg SQ MONTHLY 06/19/20 Review of Systems - Review of Systems Musculoskeletal: No: Joint Swelling <Sara Chase - Last Filed: 06/19/20 08:02> *Physical Exam - Vital Signs Last Vital Signs Temp Pulse Resp BP Pulse Ox 98.6 F 74 16 141/91 98 06/19/20 07:16 06/19/20 07:16 06/19/20 07:16 06/19/20 07:16 06/19/20 07:16 - Physical Exam General Appearance: Yes: Appropriately Dressed. No: Apparent Distress HEENT: positive: Normal Voice Neck: positive: Supple Respiratory/Chest: negative: Respiratory Distress Extremity: positive: Other (~1.5cm superficial to anterior R knee) Integumentary: positive: Dry, Warm Neurologic: positive: Fully Oriented, Alert, Normal Mood/Affect <Sara Chase - Last Filed: 06/19/20 08:02> - Vital Signs Last Vital Signs Temp Pulse Resp BP Pulse Ox 98.6 F 74 16 141/91 98 06/19/20 07:16 06/19/20 07:16 06/19/20 07:16 06/19/20 07:16 06/19/20 07:16 <Stacie Harding - Last Filed: 06/19/20 14:00> Procedures - Laceration/Wound Repair Right Knee Wound Length: to 2.5 cm Wound's Depth, Shape: superficial Irrigated w/ Saline: Yes Betadine Prep: Yes Anesthesia: 1% Lidocaine Amount of Anesthetic (ccs): 6 Wound Repaired With: Sutures Suture Size/Type: 4:0, nylon Number of Sutures: 6 Sterile Dressing Applied: Yes <Sara Chase - Last Filed: 06/19/20 08:02> ED Treatment Course - Medications Given in the ED: ED Medications Discontinued Medications Generic Name Dose Route Start Last Admin Trade Name Freq PRN Reason Stop Dose Admin Diphtheria/Tetanus/Acell Pertussis 0.5 ml 06/19/20 08:01 06/19/20 08:14 Boostrix - IM 06/19/20 08:02 0.5 ml .ONCE ONE Administration <Stacie Harding - Last Filed: 06/19/20 14:00> Medical Decision Making - Medical Decision Making 06/19/20 08:30 54-year-old male no significant history presents with knee laceration. Pt works for [employer] while throwing out garbage this am, a piece of glass protruding from bag struck R knee see exam Knee lac -s/p lac repair -tetanus updated -wound check as needed in 48 hrs <Sara Chase - Last Filed: 06/19/20 08:02> - Medical Decision Making The patient was seen and evaluated in conjunction with midlevel provider under my direct supervision, ancillary studies were reviewed. I agree with the plan as outlined with PARKER Chase. HPI, workup/dispo as outlined. VS reviewed, wnl. lac repair tdap updated anticipate discharge, pcp followup, return precautions suture removal in 10 days 06/19/20 13:59 <Stacie Harding - Last Filed: 06/19/20 14:00> Discharge - Discharge Information Problems reviewed: Yes <Sara Chase - Last Filed: 06/19/20 08:02> <Stacie Harding - Last Filed: 06/19/20 14:00> - Discharge Information Clinical Impression/Diagnosis: Knee laceration Qualifiers: Encounter type: initial encounter Laterality: right Qualified Code(s): S81.011A - Laceration without foreign body, right knee, initial encounter Condition: Good Disposition: HOME - Patient Discharge Instructions Patient Printed Discharge Instructions: DI for Laceration Repair Additional Instructions: Keep dressing in place for at least 24 hours after which one can be opened to air. You can gently cleaned wound with mild soap and water after 24 hours to prevent crusting over the suture knots. You can also apply an antibiotic ointme nt twice a day until sutures are removed. Return for redness, discharge or fever Sutures are removed in 8-10 days - Post Discharge Activity Work/Back to School Note: Back to Work
== END 2020-06-19 08:17 | disposition home or self-care (01) ==
LOC: JER 07:15
PROC: 0HQKXZZ Repair Right Lower Leg Skin, External Approach (ICD-10-PCS; principal; 2020-06-19)
PROC: 3E0234Z Introduction of Serum, Toxoid and Vaccine into Muscle, Percutaneous Approach (ICD-10-PCS; 2020-06-19)
DX: S81.011A Laceration without foreign body, right knee, initial encounter (principal)
CPT/HCPCS: 90715; 99284-25

== ENCOUNTER 2020-08-09 06:59 | Emergency (ER) | payer OTHER ==
[2020-08-09 07:27] VITALS: BP 133/82; PULSE 70; TEMP 97.8; BMI 25.7
[2020-08-09] MEDS ORDERED: DIPHTH,PERTUSS(ACELL),TET 0.5 ML DISP.SYRIN IM ONE (07:39)
== END 2020-08-09 09:30 | disposition home or self-care (01) ==
LOC: JER 06:59
PROC: 0HQKXZZ Repair Right Lower Leg Skin, External Approach (ICD-10-PCS; principal; 2020-08-09)
PROC: 3E0234Z Introduction of Serum, Toxoid and Vaccine into Muscle, Percutaneous Approach (ICD-10-PCS; 2020-08-09)
DX: S81.811A Laceration without foreign body, right lower leg, initial encounter (principal)
CPT/HCPCS: 73590-TC-RT-FY; 99284-25

== ENCOUNTER 2020-08-18 09:51 | Emergency (ER) | payer OTHER ==
[2020-08-18 10:03] VITALS: BP 133/82; PULSE 65; TEMP 98; BMI 25.7
== END 2020-08-18 10:20 | disposition home or self-care (01) ==
LOC: JERFT 09:51
DX: Z48.02 Encounter for removal of sutures (principal)
CPT/HCPCS: 99281-25

== ENCOUNTER 2021-06-16 13:02 | Emergency (ER) | payer OTHER ==
[2021-06-16] MEDS ORDERED: LIDOCAINE 5% TOPICAL PATCH TP ONE (13:25)
[2021-06-16 13:34] VITALS: BP 135/91; PULSE 77; TEMP 98.7; BMI 25.7
[2021-06-16] MEDS ORDERED: LIDOCAINE 5% TOPICAL PATCH ONE (13:46)
[2021-06-16] MEDS ORDERED: LIDOCAINE PATCH REMOVAL MC SCH (22:00)
== END 2021-06-16 14:14 | disposition home or self-care (01) ==
LOC: FER 13:02
DX: M25.551 Pain in right hip (principal); M54.5 Low back pain; V98.8XXA Other specified transport accidents, initial encounter
CPT/HCPCS: 73502-TC-RT-FY; 99283-25